=== PATIENT | male | born 1970 | race Two or more races ===

== ENCOUNTER 2020-06-14 11:25 | Outpatient (REF) | payer MEDICAID, SELFPAY | END 2020-06-14 11:26 | disposition home or self-care (01) | LOC: HO.LAB 11:25 | PROVIDERS: Visit Provider Internal Medicine | DX: Z20.822 Contact with and (suspected) exposure to COVID-19 (principal) | CPT/HCPCS: 36415; C9803; U0003; U0005 ==

== ENCOUNTER 2020-12-28 13:58 | Outpatient (REF) | payer MEDICAID, SELFPAY ==
--- NOTE | ~2020-12-28 | US_ITS ---
EXAMINATION: US RETROPERITONEAL COMPLETE (RENAL) CLINICAL INFORMATION: Renal calculi. COMPARISON: Renal ultrasound 03/03/2019 and 01/16/2018. CT abdomen and pelvis 03/30/2017. TECHNIQUE: Real-time imaging of the kidneys and bladder. FINDINGS: RIGHT KIDNEY: 11.8 x 6.3 x 5.3 cm (SAG x AP x TRV). The kidney is normal in size, contour, and echogenicity. Renal cortical thickness is normal. No calculi or focal parenchymal lesions. No hydronephrosis. LEFT KIDNEY: 11.5 x 5.9 x 5.5 cm (SAG x AP x TRV). The kidney is normal in size, contour, and echogenicity. Renal cortical thickness is normal. No calculi or focal parenchymal lesions. No hydronephrosis. BLADDER: Well distended and normal. Bilateral ureteral jets are demonstrated. Prevoid bladder volume is 152 mL. Postvoid bladder volume is 12.3 mL. Prostate volume 33.1 mL. US/US retroperitoneal comp IMPRESSION: Unremarkable renal ultrasound. Tiny postvoid bladder volume. Normal bilateral ureteral jets.
== END 2020-12-28 13:59 | disposition home or self-care (01) ==
LOC: HO.US 13:58
PROVIDERS: PCP Internal Medicine; Visit Provider Internal Medicine Geriatric Medicine
DX: M54.5 Low back pain (principal); Z87.442 Personal history of urinary calculi
CPT/HCPCS: 76770

== ENCOUNTER 2020-12-30 09:58 | Outpatient (RCR) | payer MEDICAID, SELFPAY | END 2021-01-27 15:58 | disposition home or self-care (01) | LOC: HO.PT 09:58 | PROVIDERS: PCP Internal Medicine; Visit Provider Nurse Practitioner Primary Care | DX: M54.5 Low back pain (principal) | CPT/HCPCS: 97110; 97161 ==

== ENCOUNTER 2021-05-31 10:02 | Outpatient (REF) | payer MEDICAID, SELFPAY ==
--- NOTE | ~2021-05-31 | XR_ITS ---
EXAMINATION: XR ABDOMEN KUB CLINICAL INDICATION: Calculus of kidneys. COMPARISON: None TECHNIQUE: AP view of the abdomen. FINDINGS: There is scattered stool in colon without distention. No radiopaque calculi seen. There is no organomegaly. No gross bony abnormality seen. Mild spondylosis seen at the L2-L3 disc level. XR/XR KUB IMPRESSION: Mild constipation.
== END 2021-05-31 10:03 | disposition home or self-care (01) ==
LOC: HO.XRAY 10:02
PROVIDERS: PCP Internal Medicine; Visit Provider Student in an Organized Health Care Education/Training Program
DX: N20.0 Calculus of kidney (principal)
CPT/HCPCS: 74018

== ENCOUNTER 2021-06-05 17:15 | Emergency (ER) | payer MEDICAID, SELFPAY ==
--- NOTE | ~2021-06-05 | CT_ITS ---
EXAMINATION: CT ABDOMEN AND PELVIS WITHOUT CONTRAST CLINICAL INFORMATION: Bilateral flank pain COMPARISON: None available. TECHNIQUE: Multidetector volumetric imaging was performed from the superior aspect of the liver through the pubic symphysis. Sagittal and coronal reformatted images were obtained on the technologist's workstation. This CT examination was performed using dose optimization techniques as appropriate, variously including the following: *Automated exposure control *Adjustment of mA and/or kV according to patient size (this includes techniques or standardized protocols for targeted exams where dose is matched to indication/reason for exam; i.e. extremities or head) *Use of iterative reconstruction technique DLP: 763 mGy-cm FINDINGS: LUNG BASES: Lungs are clear. Mild coronary calcifications. LIVER, GALLBLADDER, AND BILIARY TREE: The liver is normal in size, shape, and attenuation. No focal hepatic lesion or biliary ductal dilatation is present. Gallbladder unremarkable. PANCREAS: Unremarkable. SPLEEN: Unremarkable. ADRENAL GLANDS: Unremarkable. KIDNEYS AND URETERS: There is a 2 mm calculus within the distal left ureter at the ureterovesical junction associated mild upstream hydroureter and pelvocaliectasis with periureteral and perinephric fat stranding. No additional urinary calculi. Right kidney and ureter unremarkable. BLADDER: Unremarkable. GASTROINTESTINAL TRACT: The small and large bowel are unremarkable. The appendix is unremarkable. ABDOMINAL WALL: No significant hernia is appreciated. LYMPH NODES: Normal. VASCULAR: Normal caliber aorta. Mild calcific atherosclerosis of the aorta and bilateral iliac arteries. PELVIC VISCERA: Unremarkable. OSSEOUS STRUCTURES: Unremarkable. CT/CT abdomen pelvis wo con IMPRESSION: There is a 2 mm calculus within the LEFT ureterovesical junction associated with mild upstream hydroureter and pelvocaliectasis. Fleischner guidelines were followed.
[2021-06-05 17:26] VITALS: BP 152/84; PULSE 91; RESP 18; TEMP 36.8; O2SAT 98; BMI 31.5
[2021-06-05 18:14] LABS: MANUAL DIFF FLAG NO
[2021-06-05 18:15] LABS: Basophils Percent Auto 0.4 % (0-2); Eosinophils Absolute Auto 0.1 X10*3/uL (0.0-0.4); Eosinophils Percent Auto 1.1 % (0-4); Hematocrit 48.2 % (42.0-52.0); Hemoglobin 16.1 g/dl (14.0-18.0); Imm Gran Abs Auto 0.01 X10*3/uL (0.00-0.03); Imm Gran Pct Auto 0.1 % (0.0-0.4); Lymphocytes Absolute Auto 2.7 X10*3/uL (1.2-4.9); Lymphocytes Percent Auto 31.5 % (20-40); Mean Corpuscular HGB Conc 33.4 g/dl (31.0-36.0); Mean Corpuscular Hemoglobin 30.8 pg (27.0-33.0); Mean Corpuscular Volume 92.2 fL (80.0-98.0); Monocytes Absolute Auto 0.5 X10*3/uL (0.1-1.2); Monocytes Percent Auto 5.4 % (2-11); Neutrophils Absolute Auto 5.3 x10*3/uL (2.0-8.3); Neutrophils Percent Auto 61.5 % (45-73); Platelet Count 220 X10*3/uL (160-400); Red Blood Count 5.23 X10*6/uL (4.60-5.80); Red Cell Distribution Width 13.4 % (11.0-16.0); White Blood Count 8.6 X10*3/uL (4.8-10.8)
[2021-06-05 18:33] LABS: Alanine Aminotransferase 40 U/L (0-40); Albumin Level 4.6 g/dL (3.5-5.0); Alkaline Phosphatase 87 U/L (39-117); Anion Gap 14 (12-20); Aspartate Amino Transferase 41 U/L (5-37); Bilirubin Total 0.3 mg/dL (0.0-1.0); Blood Urea Nitrogen 17 mg/dL (9-16); Calcium 9.7 mg/dL (8.4-10.2); Carbon Dioxide 26 mmol/L (22-29); Chloride 108 mmol/L (96-108); Creatinine Clr Calc Pharmacy 72.9; Estimated Glomerular Filt Rate 52; Glucose Random 93 mg/dL (60-115); Sodium 144 mmol/L (135-145); Total Protein 7.5 g/dL (6.5-8.0)
--- NOTE | 2021-06-06 00:03 | PC.NURSE ---
PT ACTIVELY VERBALLY ABUSING STAFF, AND QUESTIONING PATIENTS THEY ARE BROUGHT BACK TO THE MAIN ED. THIS RN CHARGE NURSE WENT TO THE WAITING ROOM TO SPEAK W/PT RE: RESPECTING THE PRIVACY OF THE PATIENTS IN THE WAITING ROOM. AND ATTEMPTING TO EXPLAIN THAT WE HAVE TO BRING PATIENTS BACK BASED ON ACUITY AND PRIORITY. PT STATES I COULD BE FUCKING DYING, I GOT KIDNEY STONES AND THEN WALKED AWAY FROM THIS RN STATING I DON'T WANT TO HEAR YOUR FUCKING VOICE NO MORE
[2021-06-06 01:50] VITALS: BP 163/80; PULSE 95; RESP 18; O2SAT 98
[2021-06-06 02:00] VITALS: BP 101/62; PULSE 84; RESP 16; O2SAT 96
[2021-06-06] MEDS: 0.9 % Sodium Chloride 1,000 ML 999 ML IV (03:21)
[2021-06-06] MEDS: Ketorolac Tromethamine 30 MG/ML VIAL 15 MG IVPUSH (03:21)
--- NOTE | 2021-06-06 03:27 | ED.ABDPAIN ---
HPI - Abdominal Pain General Chief Complaint: Abdominal Pain Stated Complaint: abd pain Time Seen by Provider: 06/06/21 02:15 Source: patient Mode of arrival: ambulatory History of Present Illness HPI narrative: 51-year-old male with history of HIV, asthma who presents with left-sided flank pain that radiates into the anterior abdomen and down into his left groin. This has been associated with an episode of nausea and vomiting but denies any fever chills. Patient states that he uses condoms for sexual activity and is currently being followed for his HIV and is compliant with all of his medications. Related Data Previous Rx's Medication Instructions Recorded acetaminophen 500 mg tablet 1,000 mg PO Q6H PRN #30 tab 06/06/21 (Tylenol Extra Strength) prednisone 20 mg tablet 20 mg PO DAILY #4 tab 06/06/21 tamsulosin 0.4 mg capsule (Flomax) 0.4 mg PO BEDTIME #4 cap 06/06/21 Allergies Allergy/AdvReac Type Severity Reaction Status Date / Time No Known Allergies Allergy Unverified 01/01/20 14:52 [No Known Allergies*] Review of Systems Review of Systems Pertinent positives and negatives as stated in HPI 10 point review of systems is otherwise negative. PMFSH Past Medical History Source: nursing notes reviewed Social History Social History Alcohol intake: never Patient Tobacco Use Status: Current everyday Tobacco user Use of substances other than those prescribed or required for medical reasons: No Substance Use Type: Marijuana Substance Use Frequency: Daily Advance Directives: No Physical Exam ED Vital Signs: Vital Signs - 24 hr 06/05/21 17:26 06/06/21 01:50 06/06/21 02:00 Temperature 98.3 F Pulse Rate 91 95 84 Respiratory Rate 18 18 16 Blood Pressure 152/84 H 163/80 H 101/62 Pulse Oximetry 98 98 96 06/06/21 04:22 06/06/21 04:30 Temperature 98.2 F Pulse Rate 83 79 Respiratory Rate 16 16 Blood Pressure 126/82 126/82 Pulse Oximetry 98 BMI result Body Mass Index 31.5 VITAL SIGNS: Reviewed. GENERAL: Well developed, well nourished, in no acute distress. HEAD: Normocephalic/atraumatic EYES: PERRLA, EOMI EARS: Ext canals without abnormality OROPHARYNX: no oral lesions noted, posterior pharynx clear LUNGS: Normal breath sounds. No adventitious sounds or accessory muscle use. SpO2<98> CARDIOVASCULAR: Regular rate and rhythm without noted murmurs ABDOMEN: Soft, left flank pain,, non-distended with bowel sounds. SKIN: Inspection of the skin reveals no rashes NEUROLOGIC: Alert and oriented x 4. Strength and sensation to light touch were grossly intact x 4. Course Course Course Narrative: 51-year-old male with history and clinical presentation consistent with renal colic and less likely felt to be hernia or diverticulitis. On review of all investigations patient has small 2 mm ureterolithiasis and will be provided with IV hydration, Flomax, pain medication. On review of all investigations and on re-evaluation patient has 2 mm stone with mild hydro and after receiving fluids/Flomax/pain medication he reports minimal improvement but is requesting something to eat and drink. MDM - Abdominal Pain Lab Data Result diagrams: 06/05/21 18:08 06/05/21 18:08 Labs: Lab Results 06/05/21 06/05/21 06/06/21 Range/Units 18:08 18:08 04:51 WBC 8.6 (4.8-10.8) X10*3/uL RBC 5.23 (4.60-5.80) X10*6/uL Hgb 16.1 (14.0-18.0) g/dl Hct 48.2 (42.0-52.0) % MCV 92.2 (80.0-98.0) fL MCH 30.8 (27.0-33.0) pg MCHC 33.4 (31.0-36.0) g/dl RDW 13.4 (11.0-16.0) % Plt Count 220 (160-400) X10*3/uL MPV 10.0 (9.4-12.4) fL Immature Gran % (Auto) 0.1 (0.0-0.4) % Neut % (Auto) 61.5 (45-73) % Lymph % (Auto) 31.5 (20-40) % [place] % (Auto) 5.4 (2-11) % Eos % (Auto) 1.1 (0-4) % Baso % (Auto) 0.4 (0-2) % Lymph # (Auto) 2.7 (1.2-4.9) X10*3/uL [place] # (Auto) 0.5 (0.1-1.2) X10*3/uL Eos # (Auto) 0.1 (0.0-0.4) X10*3/uL Baso # (Auto) 0.0 (0.0-0.2) X10*3/uL Abs Immat Gran (auto) 0.01 (0.00-0.03) X10*3/uL Absolute Neuts (auto) 5.3 (2.0-8.3) x10*3/uL Absolute Nucleated RBC 0.000 (0.0-0.012) X10*3/uL Nucleated RBC % (auto) 0.0 (0.0-0.2) /100WBC Sodium 144 (135-145) mmol/L Potassium 4.0 (3.3-5.1) mmol/L Chloride 108 (96-108) mmol/L Carbon Dioxide 26 (22-29) mmol/L Anion Gap 14 (12-20) BUN 17 H (9-16) mg/dL Creatinine 1.45 H (0.5-1.4) mg/dL Estim Creat Clear Calc 72.9 Estimated GFR 52 Random Glucose 93 (60-115) mg/dL Calcium 9.7 (8.4-10.2) mg/dL Total Bilirubin 0.3 (0.0-1.0) mg/dL AST 41 H (5-37) U/L ALT 40 (0-40) U/L Alkaline Phosphatase 87 (39-117) U/L Total Protein 7.5 (6.5-8.0) g/dL Albumin 4.6 (3.5-5.0) g/dL Urine Color YELLOW Urine Appearance TURBID Urine pH 6.0 (5.0-8.0) Ur Specific [place] >= 1.030 H (1.005-1.025) Urine Protein 1+ H (NEG-TRACE) MG/DL Urine Glucose (UA) NEG (NEG) MG/DL Urine Ketones 15 (NEG) MG/DL Urine Blood 2+ H (NEG) Urine Nitrite NEG (NEG) Ur Leukocyte Esterase NEG (NEG) Urine RBC 1-4 (0) /HPF Urine WBC 0-2 (0-4) /HPF Ur Squamous Epith Cells NONE /LPF Amorphous Sediment 4+ /LPF Urine Bacteria TRACE /LPF Urine Mucus 1+ /LPF Discharge Plan Discharge Clinical Impression: Renal colic, Ureterolithiasis Patient Disposition: Home, Self-Care Instructions: Renal Colic (ED), Ureteral Stones (ED) Additional Instructions: 1. Increase fluid hydration, especially with water. Please avoid carbonated and caffeinated beverages as much as possible. 2. You have been provided with a referral to follow-up with urology and you should call the office this morning. 3. Follow-up with your primary care provider to further discuss and get re-evaluated. Return to the ER for worsening symptoms. Prescriptions: New tamsulosin [Flomax] 0.4 mg capsule 0.4 mg PO BEDTIME Qty: 4 0RF acetaminophen [Tylenol Extra Strength] 500 mg tablet 1,000 mg PO Q6H PRN (Reason: pain) Qty: 30 0RF prednisone 20 mg tablet 20 mg PO DAILY Qty: 4 0RF Referrals: Sree Jerez MD [Physician] - 1 day (Left 2mm stone with mild hydro)
[2021-06-06 04:22] VITALS: BP 126/82; PULSE 83; RESP 16; TEMP 36.8; O2SAT 98
[2021-06-06 04:30] VITALS: BP 126/82; PULSE 79; RESP 16
[2021-06-06] MEDS: Tamsulosin HCL 0.4 MG CAPSULE PO (04:36)
[2021-06-06 04:56] LABS: Appearance Urine TURBID; Color Urine YELLOW; Glucose Urine UA NEG (NEG); Leukocyte Esterase Urine NEG (NEG); Nitrite Urine NEG (NEG); Specific Gravity - Urine >= 1.030 (1.005-1.025); UACC Culture Trigger NO; Urine Blood 2+ (NEG); Urine Ketones 15 MG/DL (NEG); Urine Protein 1+ MG/DL (NEG-TRACE)
[2021-06-06 05:03] LABS: Amorphous Sediment Urine 4+ /LPF; Bacteria Urine TRACE /LPF; Mucus Urine 1+ /LPF; WBC Urine 0-2 /HPF (0-4)
== END 2021-06-06 06:51 | disposition home or self-care (01) ==
PROVIDERS: Emergency Provider Student in an Organized Health Care Education/Training Program
DX: N20.1 Calculus of ureter (principal); N23 Unspecified renal colic; Z79.899 Other long term (current) drug therapy
CPT/HCPCS: 36415; 74176; 80053; 81001; 85025; 96361; 96374; 99284; J1885

== ENCOUNTER → 2021-10-20 13:28 | Outpatient (BNVA) | payer MEDICAID, SELFPAY | PROVIDERS: PCP Internal Medicine | DX: N20.0 Calculus of kidney (principal); R39.11 Hesitancy of micturition; R35.1 Nocturia | CPT/HCPCS: 51798; 99202 ==

== ENCOUNTER 2022-01-09 09:55 | Outpatient (REF) | payer MEDICAID, SELFPAY ==
--- NOTE | ~2022-01-09 | US_ITS ---
EXAMINATION: US RETROPERITONEAL LIMITED (RENAL ONLY) CLINICAL INFORMATION: Calculus of kidney. COMPARISON: CT abdomen and pelvis without contrast 06/06/2021. TECHNIQUE: Real-time imaging of the kidneys. FINDINGS: RIGHT KIDNEY: 12.0 x 5.5 x 5.0 cm (SAG x AP x TRV). The kidney is normal in size, contour, and echogenicity. Renal cortical thickness is normal. No calculi or focal parenchymal lesions. No hydronephrosis. LEFT KIDNEY: 12.0 x 6.3 x 4.5 cm (SAG x AP x TRV). The kidney is normal in size, contour, and echogenicity. Renal cortical thickness is normal. No calculi or focal parenchymal lesions. No hydronephrosis. US/US renal BI IMPRESSION: No hydronephrosis or nephrolithiasis appreciated..
== END 2022-01-09 09:56 | disposition home or self-care (01) ==
LOC: HO.US 09:55
DX: N20.0 Calculus of kidney (principal)
CPT/HCPCS: 76775

== ENCOUNTER 2022-02-10 09:54 | Outpatient (REF) | payer MEDICAID, SELFPAY ==
[2022-02-10 11:20] LABS: PSA,Total (Free>4and<10) 0.37 ng/mL (0.00-4.00)
== END 2022-02-10 09:55 | disposition home or self-care (01) ==
LOC: HO.LAB 09:54
PROVIDERS: PCP Internal Medicine; Visit Provider Urology
DX: Z12.5 Encounter for screening for malignant neoplasm of prostate (principal); R39.11 Hesitancy of micturition
CPT/HCPCS: 36415; 84153

== ENCOUNTER → 2022-07-25 10:00 | Outpatient (BNVA) | payer MEDICAID, SELFPAY | PROVIDERS: PCP Internal Medicine; Visit Provider Urology | DX: R39.15 Urgency of urination (principal) | CPT/HCPCS: 51798; 99212 ==

== ENCOUNTER 2022-10-18 11:08 | Outpatient (REF) | payer MEDICAID, SELFPAY | END 2022-10-18 11:09 | disposition home or self-care (01) | LOC: HO.US 11:08 | PROVIDERS: PCP Internal Medicine; Visit Provider Urology | DX: Z13.89 Encounter for screening for other disorder (principal) ==

== ENCOUNTER 2022-10-23 11:57 | Outpatient (REF) | payer MEDICAID, SELFPAY ==
--- NOTE | ~2022-10-23 | US_ITS ---
EXAMINATION: US PELVIS LIMITED (BLADDER) CLINICAL INFORMATION: Benign prostatic hyperplasia without lower urinary tract symptoms. COMPARISON: Ultrasound retroperitoneal limited (renal only) 01/09/2022. TECHNIQUE: Real-time imaging of the bladder. FINDINGS: BLADDER: Well distended and normal. Bilateral ureteral jets are demonstrated. Prevoid bladder volume is 391.21 mL. Postvoid bladder volume is 42.73 mL. The prostate volume is 37.9 mL. US/US bladder IMPRESSION: Prostate is enlarged with a volume of 37.9 mL. Postvoid bladder residual of 42.7 mL.
== END 2022-10-23 11:58 | disposition home or self-care (01) ==
LOC: HO.US 11:57
PROVIDERS: PCP Internal Medicine; Visit Provider Urology
DX: Z12.5 Encounter for screening for malignant neoplasm of prostate (principal); N40.0 Benign prostatic hyperplasia without lower urinary tract symptoms
CPT/HCPCS: 76857

== ENCOUNTER 2022-11-10 13:06 | Outpatient (AMB) | payer MEDICAID, SELFPAY ==
--- NOTE | 2022-11-10 13:15 | A.OFFVIS_ITS ---
Intake Intake Visit Reasons: Cysto/US bladder(set) Intake Note: Patient presents today for a CYSTOSCOPY Procedure: Meds: Doxazosin & Telterodine Allergies to Antibiotic: Sulfa Blood Thinner: None Urinalysis test clear for Cysto Disposable Uro-G Cystoscope Cannula: Lot: [id number] Exp: 08/18/2024 Allergies No Known Allergies [No Known Allergies*] Allergy (Verified 11/10/22 14:04) Medication List - Last Reconciled 11/10/22 by Sree Jerez MD bethanechol chloride 50 mg PO BID 30 days qcgwbgnnv-tsahnozi-ezywluw ala 50-200-25 mg (Biktarvy) 1 tab PO BEDTIME ipratropium-albuterol 20-100 mcg/actuation (Combivent Respimat) 1 puff inhalation QID PRN levothyroxine 175 mcg PO DAILY multivitamin 1 tab PO DAILY pravastatin 10 mg PO DAILY prednisone 20 mg PO DAILY HPI HPI Comments History of Present Illness Details Memo is a pleasant male. He is a patient Dr. Freed. He is seen for the following urologic conditions - urinary urgency with small voiding Persistent urgency with occasional weakness of stream Bladder ultrasound normal Cystoscopy normal Small prostate Trial bethanechol Lower urinary tract symptoms Persistent weakness of stream with frequency Current medications include doxazosin Concurrent conditions include HIV Has tried anticholinergics including tolterodine Cystoscopy small prostate PFSH Medical History H/O radioactive iodine thyroid ablation Hesitancy of micturition History of Graves' disease History of rhabdomyolysis History of syncope Renal calculi Social History Alcohol intake: never Patient Tobacco Use Status: Current everyday Tobacco user Substance Use Type: Marijuana Review of Systems Const Denies chills and Denies fever(s) Card Reports no additional complaints and Denies syncope Resp Denies cough GI Denies abdominal pain and Denies heartburn Reports as per HPI and Denies change in libido Neuro Denies syncope Psych Denies change in libido Endo Denies change in libido Physical Exam Const General: cooperative, healthy appearing, comfortable and no acute distress Orientation/consciousness: patient oriented x3 HEENT Face and sinus: Yes normal facial exam Mouth: moist mucous membranes Neck Neck: Yes normal visual inspection, Yes full ROM and Yes trachea midline Chest Chest palpation & inspection: normal inspection of the chest Resp Effort & Inspection: normal respiratory effort, able to speak in complete sentences and no respiratory distress GI Inspection: Yes normal to inspection Back/Spine/Pelvis Cervical Spine: normal cervical lordosis Thoracic/Lumbar Spine: thoracic and lumbar spine normal to inspection Skin General skin exam: no rashes or lesions noted Neuro General: patient oriented x3, gait normal, tone normal and moves all extremities Extrem General: Yes normal to inspection and Yes capillary refill normal Office Procedures Cystoscopy Consent Discussed risk and benefit or proposed procedure with the patient. Information consent for procedure given to the patient. Discussed technical aspects, risks, benefits and alternatives in full. Addressed all of the patient's questions and concerns regarding the procedure. The patient demonstrated knowledge and understanding. They wish to proceed with this procedure. Preparation The patient was prepped in the usual manner. A manager of administration was present and in the room. Genitalia was prepped with betadine solution in a sterile manner. Lidocaine Jelly 2% was placed into the urethra and 16Fr flexible Olympus cystoscope was inserted into the meatus after adequate lubrication. Procedure Meatus circumcised Urethra anterior posterior urethra normal Prostatic Urethra unremarkable Bladder examination with retroflexion of cystoscope Bladder Orifices normal shape and position Bladder Capacity medium Trabeculations grade 1 Cellule Formation - Diverticulum Formation - Mucosal Erythema - Bladder Tumor - [id number] Procedure code (CPT) selection complete Office Meds lidocaine HCl Performing Provider: Sree Jerez MD Administered by: Gricelda Mendoza RN on 11/10/22 14:20 Dose Route Admin Location Lot Number Expiration Date [employer] 10 mL intra-urethral nitrofurantoin monohyd/m-cryst 100 mg Performing Provider: Sree Jerez MD Administered by: Gricelda Mendoza RN on 11/10/22 14:20 Dose Route Admin Location Lot Number Expiration Date [employer] 100 mg PO Results AMB Urinalysis, Automated UA Leukoctes 0 [place]/uL Last Edit by Nancy Noland MA on 11/10/22 14:07 UA Nitrite Negative Last Edit by Nancy Noland MA on 11/10/22 14:07 UA Urobilinogen 0.2 mg/dL Last Edit by Nancy Noland MA on 11/10/22 14:07 UA Protein 15 mg/dL Last Edit by Nancy Noland MA on 11/10/22 14:07 UA pH 5.5 Last Edit by Nancy Noland MA on 11/10/22 14:07 UA Blood 25 [place]/uL Last Edit by Nancy Noland MA on 11/10/22 14:07 UA Specific [place] 1.030 Last Edit by Nancy Noland MA on 11/10/22 14:07 UA Ketone Positive Last Edit by Nancy Noland MA on 11/10/22 14:07 UA Bilirubin 0 mg/dL Last Edit by Nancy Noland MA on 11/10/22 14:07 UA Glucose 0 mg/dL Last Edit by Nancy Noland MA on 11/10/22 14:07 Results Reviewed Results Reviewed: Laboratory Last Values Urine pH (Auto) 5.5 11/10/22 14:05 Specific [place] (Auto) 1.030 11/10/22 14:05 Urine Protein (Auto) 15 mg/dL 11/10/22 14:05 Glucose (UA)(Auto) 0 mg/dL 11/10/22 14:05 Urine Ketones (Auto) Positive 11/10/22 14:05 Urine Blood (Auto) 25 [place]/uL 11/10/22 14:05 Urine Nitrite (Auto) Negative 11/10/22 14:05 Urine Bilirubin (Auto) 0 mg/dL 11/10/22 14:05 Urine Urobilinogen (Auto) 0.2 mg/dL 11/10/22 14:05 Leukocyte Esterase (Auto) 0 [place]/uL 11/10/22 14:05 Assessment & Plan Assessment & Plan (1) Urinary urgency: Code(s): R39.15 - Urgency of urination (2) Hesitancy of micturition: Code(s): R39.11 - Hesitancy of micturition Plan Three month follow-up Orders: Orders AMB Cystoscopy Today N40.0 - Benign prostatic hyperplasia without lower urinary tract symptoms AMB Urinalysis Automated Today Z13.9 - Encounter for screening, unspecified Medications: New bethanechol chloride 50 mg PO BID 60 tabs 1RF 30 days N39.0 - Urinary tract infection, site not specified, R39.11 - Hesitancy of micturition Discontinued doxazosin Discontinued Reason: Patient Completed Course 4 mg PO BEDTIME 30 tabs 1RF 30 days N13.8 - Other obstructive and reflux uropathy, N40.0 - Benign prostatic hyperplasia without lower urinary tract symptoms, N40.1 - Benign prostatic hyperplasia with lower urinary tract symptoms, R39.11 - Hesitancy of micturition tolterodine ER Discontinued Reason: Patient Completed Course 2 mg PO DAILY 30 caps 1RF 30 days Patient Instructions: Imaging studies, laboratory and physical exam results were discussed and reviewed in detail. No major barriers to patient understanding were identified. An opportunity to ask questions regarding the treatment plan was provided. All questions were answered. The patient expressed understanding and agreement with the above treatment plan. The patient is aware they should contact our office by phone for worsening of their current condition or the appearance of new urologic symptoms. Compliance i s encouraged with any medications and followup testing that is ordered. It is a privilege to participate in the urologic care of your patient. If you have any questions or concerns regarding treatment for the above conditions, or other urologic issues, please do not hesitate to contact me. The office telephone contact is [phone]. This note is constructed using voice recognition software. While every effort has been made to ensure accuracy premium representative errors may have been included. Yours sincerely, Dr Sree Jerez MD, [facility] - Urology Providers of Expert, Compassionate Care for the Genitourinary System Coding Level of Care Code Est Pt Level 4 (29284) Diagnoses Urinary urgency R39.15 Hesitancy of micturition R39.11 CPT Codes Cystoscopy - CPT: 99367-[id number] ([id number])
== END 2022-11-10 14:40 | disposition home or self-care (01) ==
PROVIDERS: Visit Provider Urology
DX: R39.15 Urgency of urination (principal); R39.11 Hesitancy of micturition; N40.0 Benign prostatic hyperplasia without lower urinary tract symptoms
CPT/HCPCS: 52000

== ENCOUNTER → 2022-11-10 13:06 | Outpatient (BNVA) | payer MEDICAID, SELFPAY | PROVIDERS: Visit Provider Urology | DX: R39.15 Urgency of urination (principal); R39.11 Hesitancy of micturition | CPT/HCPCS: 52000 ==

== ENCOUNTER 2022-12-01 12:55 | Outpatient (AMB) | payer MEDICAID, SELFPAY ==
--- NOTE | 2022-12-01 07:36 | MHC.OFFVIS ---
Intake Intake Visit Reasons: LDCT SD Allergies No Known Allergies [No Known Allergies*] Allergy (Verified 11/10/22 14:04) HPI LDCT SD HPI Details Initial visit for this 52yo smoker with a 21PYH. Patient has been smoking since age 31 for 21 years at 1ppd. . Denies marijuana use. Denies second hand smoke exposure. Denies exposure to chemicals or substances like asbestos. . Denies known family history of lung cancer. Denies personal history of cancers. History of HIV (dx 2002). History of Graves s/p COELLO and thyroidectomy. .. Denies chest CT in last year. CT of abdomen done 03/30/17 noted a 3mm nodule in left lung base . Denies recent travel outside the [place]. Denies recent respiratory illness or recent hospitalization for respiratory issues. Denies testing positive for COVID. Admits receiving COVID Vaccine. x 3. . Denies fever, chills, new/worsening cough, hemoptysis, hoarseness or dysphagia. Denies significant chest pain, significant dyspnea or unintentional weight loss. Patient Lung Cancer Screening Questionnaire reviewed with patient by provider. . Shared Decision Making Completed. Patient meets criteria. Discussed in detail with patient, the risk vs benefit of LDCT screening. Patient consents to proceed with scan. Discussed smoking cessation. [facility] Medical History (Updated 12/01/22 @ 13:08 by Flor Ramos PA-C) Hesitancy of micturition History of Graves' disease (~2005) History of radioactive iodine thyroid ablation (~2006) History of rhabdomyolysis History of syncope HIV (human immunodeficiency virus infection) (~2002) Hyperlipemia Hypothyroidism, postsurgical (~2007) Nicotine dependence, cigarettes, uncomplicated Renal calculi Surgical History (Updated 11/27/22 @ 13:07 by Flor Ramos PA-C) History of colonoscopy History of cystoscopy History of total thyroidectomy (~2007) Social History (Updated 12/01/22 @ 13:04 by Flor Ramos PA-C) Alcohol intake: never Patient Tobacco Use Status: Current everyday Tobacco user Years Smoked: (onset 31yo, 1ppd x 21yrs - 21pyh) Substance Use Type: Marijuana Assessment & Plan Assessment & Plan (1) Nicotine dependence, cigarettes, uncomplicated: Comment: (current smoker, onset 31yo, 1ppd x 21yrs, 21pyh) Code(s): F17.210 - Nicotine dependence, cigarettes, uncomplicated Plan: - SDM visit completed today in office. - Patient meets criteria for LDCT for lung cancer screening purposes and is asymptomatic. - Smoking cessation counseling offered. Patients can always call [phone]. - Will arrange for a LDCT scan of the chest for screening purposes at [facility]. - Risks, benefits, and alternatives were discussed in detail and the patient agrees to proceed. - Risks discussed include but are not limited to: radiation exposure, anxiety during testing and while awaiting results, false negatives, false positives and possibility of additional intervention such as further imaging or surgical procedures for benign disease. - Benefits are obviously detection of lung cancer at an early stage which can lead to improved outcomes. - Discussed the importance of screening program compliance with adherence to yearly LDCT scan as scheduled - or sooner interval scans for personalized screening regimen. - Discussed follow up plan. Our office will send a letter discussing results and if needed set up phone call and office visit based on CT findings. - Patient educated on results categorization and the management decisions for suspicious findings potentially found on the screening LDCT scan. Any patient with a Lung RADS score of 3 or 4 will be reviewed by a multidisciplinary team at [facility] to form a plan of action in regards to scan findings. - If further work up is warranted for a suspicious lung finding this will be followed by the Lung Cancer Screening program in conjunction with the Thoracic Surgery Department at [facility]. - A copy of the office note and LDCT will be sent to the patient's PCP - as well as documentation on any associated further plans of care. - Incidental findings on LDCT are the PCP's responsibility. These findings are indicated with an S finding on the LDCT Assessment. A note discussing the findings will be sent to the PCP who is then responsible for further management. - All questions answered.? Coding Level of Care Code Lung Cancer Screening G0296 Diagnoses Nicotine dependence, cigarettes, uncomplicated F17.210
== END 2022-12-01 13:47 | disposition home or self-care (01) ==
PROVIDERS: PCP Internal Medicine; Visit Provider Physician Assistant Medical
DX: F17.210 Nicotine dependence, cigarettes, uncomplicated (principal)
CPT/HCPCS: G0296

== ENCOUNTER 2022-12-01 13:20 | Outpatient (REF) | payer MEDICAID, SELFPAY ==
--- NOTE | ~2022-12-01 | CT_ITS ---
EXAMINATION: CT CHEST SCREENING CLINICAL INFORMATION: Current smoker. 20 pack year history. COMPARISON: Previous chest x-ray from 2013 TECHNIQUE: Multidetector volumetric CT imaging of the chest is performed without contrast using low dose technique. Additional 2D coronal and sagittal reformatted images and axial 3D maximum intensity projection (MIP) images are generated on the CT workstation. This CT examination was performed using dose optimization techniques as appropriate, variously including the following: *Automated exposure control *Adjustment of mA and/or kV according to patient size (this includes techniques or standardized protocols for targeted exams where dose is matched to indication/reason for exam; i.e. extremities or head) *Use of iterative reconstruction technique DLP: 75 mGy-cm FINDINGS: LUNGS: Mild emphysema. 3 mm right upper lobe nodule axial image 75 series 5. Rim millimeters left upper lobe nodule axial image 105 series 5. 2 mm right upper lobe nodule axial image 135 series 5. 3 mm peripheral or subpleural right lower lobe nodule adjacent to the major fissure axial image 168 series 5. 2 and 3 mm peripheral right upper lobe nodules axial image 199 series 5. 2 and 4 mm peripheral or subpleural right middle lobe nodules adjacent to the minor fissure axial image 244 and 3 mm more lateral similar nodule axial image 241 series 5. 4 mm peripheral right lower lobe nodule axial image 273 series 5. 3 mm peripheral or subpleural lingular nodule and right lower lobe nodule axial image 299 series 5. 4 mm peripheral left lower lobe nodule axial image 38 series 5. 3 mm peripheral or subpleural right middle lobe nodule axial image 312 series 5. 2 mm peripheral left lower lobe nodule axial image 346 series 5. MEDIASTINUM: The thyroid gland appears to have been removed. Small mediastinal lymph nodes. No enlarged lymph nodes. Normal heart size. Trace pericardial effusion. Normal caliber thoracic aorta. Mild coronary artery calcification. CORONARY ARTERY CALCIFICATION: Mild PLEURA: There is no pleural effusion. No pleural mass or thickening. AXILLA: No lymphadenopathy. UPPER ABDOMEN: Unremarkable OSSEOUS STRUCTURES: Unremarkable. CT/CT lung screening IMPRESSION: Mild emphysema. Small bilateral pulmonary nodules, largest measuring 4 mm. ASSESSMENT: Lung-RADS category 2: Benign RECOMMENDATION: Annual low-dose chest CT follow-up recommended
== END 2022-12-01 13:21 | disposition home or self-care (01) ==
LOC: HO.CT 13:20
PROVIDERS: PCP Internal Medicine; Visit Provider Physician Assistant Medical
DX: Z12.2 Encounter for screening for malignant neoplasm of respiratory organs (principal); F17.210 Nicotine dependence, cigarettes, uncomplicated
CPT/HCPCS: 71271; G0296

== ENCOUNTER 2022-12-05 13:52 | Outpatient (REF) | payer MEDICAID, SELFPAY ==
[2022-12-05 16:06] LABS: MANUAL DIFF FLAG NO
[2022-12-05 16:18] LABS: Basophils Absolute Auto 0.1 X10*3/uL (0.0-0.2); Basophils Percent Auto 0.5 % (0-2); Eosinophils Absolute Auto 0.2 X10*3/uL (0.0-0.4); Eosinophils Percent Auto 2.1 % (0-4); Hematocrit 50.9 % (42.0-52.0); Imm Gran Abs Auto 0.03 X10*3/uL (0.00-0.03); Imm Gran Pct Auto 0.3 % (0.0-0.4); Lymphocytes Absolute Auto 3.3 X10*3/uL (1.2-4.9); Lymphocytes Percent Auto 36.6 % (20-40); Mean Corpuscular HGB Conc 33.4 g/dl (31.0-36.0); Mean Corpuscular Hemoglobin 30.7 pg (27.0-33.0); Monocytes Absolute Auto 0.6 X10*3/uL (0.1-1.2); Monocytes Percent Auto 6.3 % (2-11); Neutrophils Absolute Auto 4.9 x10*3/uL (2.0-8.3); Neutrophils Percent Auto 54.2 % (45-73); Platelet Count 206 X10*3/uL (160-400); Red Blood Count 5.53 X10*6/uL (4.60-5.80); Red Cell Distribution Width 13.2 % (11.0-16.0); White Blood Count 9.1 X10*3/uL (4.8-10.8)
[2022-12-05 16:55] LABS: Alanine Aminotransferase 41 U/L (0-40); Albumin Level 4.5 g/dL (3.5-5.0); Alkaline Phosphatase 84 U/L (39-117); Anion Gap 13 (12-20); Aspartate Amino Transferase 27 U/L (5-37); Bilirubin Total 0.3 mg/dL (0.0-1.0); Blood Urea Nitrogen 17 mg/dL (9-16); Calcium 9.8 mg/dL (8.4-10.2); Carbon Dioxide 25 mmol/L (22-29); Chloride 110 mmol/L (96-108); Estimated Glomerular Filt Rate > 60; Glucose Random 81 mg/dL (60-115); Sodium 144 mmol/L (135-145); Total Protein 7.6 g/dL (6.5-8.0)
[2022-12-05 17:19] LABS: TSH reflex Free T4 0.52 uIU/mL (0.32-4.0)
[2022-12-06 11:39] LABS: Absolute CD3 Count 2498 cells/uL (840-3060); Absolute CD4 Count 1341 cells/uL (490-1740); Absolute CD8 Count 1179 cells/uL (180-1170); Absolute Lymphocytes 3411 cells/uL (850-3900); CD4 CD8 Ratio 1.14 (0.86-5.00); Percent CD3 Cells 73 % (57-85); Percent CD4 Cells 39 % (30-61); Percent CD8 Cells 35 % (12-42)
[2022-12-07 15:08] LABS: HIV RNA PCR Qn Copies NOT DETECTED copies/mL (NOT DETECTED); HIV RNA PCR Qn Log Copies NOT DETECTED (NOT DETECTED)
[2022-12-07 20:34] LABS: TS Negative Control Passed; TS Panel A 0; TS Panel B 2; TS Positive Control Passed; TSpotTB Negative (Negative)
== END 2022-12-05 13:53 | disposition home or self-care (01) ==
LOC: HO.HHCL 13:52
PROVIDERS: Referring Provider Family Medicine; Visit Provider Registered Nurse
DX: Z11.1 Encounter for screening for respiratory tuberculosis (principal); E89.0 Postprocedural hypothyroidism; B20 Human immunodeficiency virus [HIV] disease
CPT/HCPCS: 36415; 80053; 84443; 85025; 86359; 86360; 86481; 87536

== ENCOUNTER 2023-05-24 09:27 | Outpatient (REF) | payer MEDICAID, SELFPAY ==
[2023-05-24 11:24] LABS: MANUAL DIFF FLAG NO
[2023-05-24 11:58] LABS: Basophils Absolute Auto 0.1 X10*3/uL (0.0-0.2); Basophils Percent Auto 0.6 % (0-2); Eosinophils Absolute Auto 0.2 X10*3/uL (0.0-0.4); Hematocrit 49.7 % (42.0-52.0); Imm Gran Abs Auto 0.02 X10*3/uL (0.00-0.03); Imm Gran Pct Auto 0.2 % (0.0-0.4); Lymphocytes Absolute Auto 2.9 X10*3/uL (1.2-4.9); Lymphocytes Percent Auto 34.4 % (20-40); Mean Corpuscular HGB Conc 34.2 g/dl (31.0-36.0); Mean Corpuscular Hemoglobin 31.3 pg (27.0-33.0); Mean Corpuscular Volume 91.5 fL (80.0-98.0); Mean Platelet Volume 10.8 fL (9.4-12.4); Monocytes Absolute Auto 0.4 X10*3/uL (0.1-1.2); Monocytes Percent Auto 4.8 % (2-11); Neutrophils Absolute Auto 4.9 x10*3/uL (2.0-8.3); Platelet Count 232 X10*3/uL (160-400); Red Blood Count 5.43 X10*6/uL (4.60-5.80); Red Cell Distribution Width 13.7 % (11.0-16.0); White Blood Count 8.5 X10*3/uL (4.8-10.8)
[2023-05-24 12:14] LABS: Alanine Aminotransferase 33 U/L (0-40); Albumin Level 4.3 g/dL (3.5-5.0); Alkaline Phosphatase 90 U/L (39-117); Anion Gap 14 (12-20); Aspartate Amino Transferase 24 U/L (5-37); Bilirubin Total 0.4 mg/dL (0.0-1.0); Blood Urea Nitrogen 16 mg/dL (9-16); Calcium 9.4 mg/dL (8.4-10.2); Carbon Dioxide 25 mmol/L (22-29); Chloride 107 mmol/L (96-108); Cholesterol 188 mg/dL (<200); Estimated Glomerular Filt Rate > 60; Glucose Random 99 mg/dL (60-115); HDL Cholesterol 40 mg/dL (>40); LDL Cholesterol Calculated 113 mg/dL (<100); Potassium 4.1 mmol/L (3.3-5.1); Sodium 142 mmol/L (135-145); Total Protein 7.4 g/dL (6.5-8.0); Triglycerides 176 mg/dL (<150)
[2023-05-24 12:22] LABS: Syphilis Screen Nonreactive (Nonreactive)
[2023-05-24 12:25] LABS: ~HepC Num1 0.11 S/CO (0.00-0.79); ~Hepatitis C Antibody Nonreactive (Nonreactive)
[2023-05-24 13:36] LABS: Reflex LDLD? No
[2023-05-25 14:23] LABS: Absolute CD3 Count 2168 cells/uL (840-3060); Absolute CD4 Count 1072 cells/uL (490-1740); Absolute CD8 Count 1087 cells/uL (180-1170); Absolute Lymphocytes 3180 cells/uL (850-3900); CD4 CD8 Ratio 0.99 (0.86-5.00); Percent CD3 Cells 68 % (57-85); Percent CD4 Cells 34 % (30-61); Percent CD8 Cells 34 % (12-42)
[2023-05-25 18:53] LABS: HIV RNA PCR Qn Copies 262 copies/mL (NOT DETECTED); HIV RNA PCR Qn Log Copies 2.42 (NOT DETECTED)
== END 2023-05-24 09:28 | disposition home or self-care (01) ==
LOC: HO.HHCL 09:27
PROVIDERS: Visit Provider Student in an Organized Health Care Education/Training Program
DX: B20 Human immunodeficiency virus [HIV] disease (principal)
CPT/HCPCS: 36415; 80053; 80061; 85025; 86359; 86360; 86735; 86762; 86765; 86780; 86803; 87536

== ENCOUNTER 2023-07-11 10:58 | Outpatient (REF) | payer MEDICAID, SELFPAY ==
[2023-07-11 15:49] LABS: CT PCR NOT DETECTED (Not Detect.); NG PCR NOT DETECTED (Not Detect.)
[2023-07-13 15:18] LABS: HIV RNA PCR Qn Copies 32 copies/mL (NOT DETECTED); HIV RNA PCR Qn Log Copies 1.51 (NOT DETECTED)
== END 2023-07-11 10:59 | disposition home or self-care (01) ==
LOC: HO.HHCL 10:58
PROVIDERS: Visit Provider Student in an Organized Health Care Education/Training Program
DX: B20 Human immunodeficiency virus [HIV] disease (principal)
CPT/HCPCS: 0353U; 36415; 87536

== ENCOUNTER 2023-07-30 18:16 | Emergency (ER) | payer MEDICAID, SELFPAY ==
--- NOTE | ~2023-07-30 | XR_ITS ---
EXAMINATION: XR HIP, RIGHT CLINICAL INFORMATION: Fall and pain COMPARISON: None available. TECHNIQUE: Frontal view the pelvis with coned frontal and frog-leg lateral views of the right hip. of the right hip. FINDINGS: Femoral head is well-seated within the acetabula. Degenerative changes are seen with prominent marginal osteophytosis. I do not appreciate any cortical disruption or trabecular irregularity to suggest underlying fracture or dislocation. Elongated femoral head/neck junction could be seen in the setting of cam-type femoral acetabular impingement syndrome. Similar morphology is seen in the contralateral left hip. Unremarkable bowel gas pattern. XR/XR hip RT w PEL1V IMPRESSION: Degenerative changes but no acute fracture or dislocation. Elongated femoral head/neck junction could be seen in the setting of cam type femoral acetabular impingement syndrome.
--- NOTE | ~2023-07-30 | XR_ITS ---
EXAMINATION: XR RIBS, RIGHT CLINICAL INFORMATION: Fall. Pain. COMPARISON: Chest radiograph dated 03/03/2013. TECHNIQUE: 6 views of the right ribs were obtained. FINDINGS: Lungs are clear. No consolidation, pneumothorax, or pleural effusion. The cardiomediastinal silhouette and pulmonary vasculature are normal. Osseous structures are unremarkable. Ribs are intact. No fractures are identified. XR/XR ribs RT min 3V w CXR1V IMPRESSION: Ribs are intact. No fractures are identified. No acute cardiopulmonary disease.
[2023-07-30 18:27] VITALS: BP 143/97; BP 152/96; PULSE 113; PULSE 120; RESP 19; TEMP 36.8; O2SAT 94; O2SAT 98; BMI 30.4
--- NOTE | 2023-07-30 19:09 | ED.FALL ---
HPI - Fall General Chief Complaint: Fall Stated Complaint: FALL, HIP PAIN Time Seen by Provider: 07/30/23 18:40 Source: patient Mode of arrival: ambulatory Limitations: no limitations History of Present Illness HPI Narrative: Patient is a 53-year-old male who presents emergency department for evaluation of right hip pain after mechanical trip and fall. He reports at approximately 11:00 this morning he was walking, and his foot got caught on a elevation of the sidewalk resulting in a trip and fall landing on his right hip. He denies any head strike or loss of consciousness. He denies use of blood thinners or known coagulation disorders. He is not experiencing any headache. He does admit to walking home after, limping, putting minimal weight on the leg. Currently he reports pain to the right hip and proximal thigh. He denies pain to his upper extremities or headache. He denies abdominal pain, however he does admit that if he tries to take a deep breath in he notices pain to the right side of the chest. He reports he did not take any pain medication at home today before coming in via EMS. Related Data Home Medications ?Medication ?Instructions ?Recorded ?Confirmed bictegravir 50 mg-emtricitabine 1 tab PO BEDTIME 10/20/21 11/10/22 200 mg-tenofovir alafenam 25 mg tablet (Biktarvy) ipratropium 20 mcg-albuterol 100 1 puff inhalation QID PRN 10/20/21 11/10/22 mcg/actuation mist for inhalation (Combivent Respimat) levothyroxine 175 mcg tablet 175 mcg PO DAILY 10/20/21 11/10/22 multivitamin 1 tab PO DAILY 10/20/21 11/10/22 pravastatin 10 mg tablet 10 mg PO DAILY 10/20/21 11/10/22 Previous Rx's ?Medication ?Instructions ?Recorded prednisone 20 mg tablet 20 mg PO DAILY #4 tabs 06/06/21 bethanechol chloride 50 mg tablet 50 mg PO BID 30 days #60 tabs 01/11/23 oxycodone 5 mg tablet 5 mg PO Q6H PRN pain #10 tabs 07/30/23 Allergies Allergy/AdvReac Type Severity Reaction Status Date / Time No Known Allergies Allergy Verified 07/30/23 18:31 [No Known Allergies*] Review of Systems Review of Systems: Yes all other systems are reviewed and are negative [facility] Past Medical History Attestation statement: The following information was validated with the patient. Source: old records reviewed Medical History Hyperlipemia HIV (human immunodeficiency virus infection) (~2002) Hypothyroidism, postsurgical (~2007) History of radioactive iodine thyroid ablation (~2006) Nicotine dependence, cigarettes, uncomplicated History of rhabdomyolysis History of syncope History of Graves' disease (~2005) Renal calculi Hesitancy of micturition Surgical History History of colonoscopy History of cystoscopy History of total thyroidectomy (~2007) Social History Social History (Updated 12/01/22 @ 13:04 by Flor Ramos PA-C) Alcohol intake: never Patient Tobacco Use Status: Current everyday Tobacco user Years Smoked: (onset 31yo, 1ppd x 21yrs - 21pyh) Substance Use Type: Marijuana Advance Directives: No Advance Directives Information Provided: No Physical Exam Vital Signs: Vital Signs: Last Vital Signs Temp 98.2 F 07/30/23 21:57 Pulse 102 H 07/30/23 21:57 Resp 18 07/30/23 21:57 BP 134/86 07/30/23 21:57 Pulse Ox 96 07/30/23 21:57 O2 Del Method Room Air 07/30/23 21:57 BMI result Body Mass Index 30.4 Appearance: Alert.?Oriented to person, place and time. No acute distress.?Normal affect. Eyes: Pupils equal, round and reactive to light.? ENT: Pharynx normal.?? Neck: Normal inspection.? Neck supple.?? CVS: Heart sounds normal. Normal heart rate and rhythm.? Pulses normal.?? Respiratory: No respiratory distress.? Lung sounds clear to auscultation bilaterally. No palpable deformities of the chest wall. ? Abdomen: Soft and non-tender. Normoactive bowel sounds. Skin: Skin warm and dry.? Normal skin color.? Extremities: No lower extremity edema. Tenderness upon palpation of the right hip and proximal femur. No shortening. No rotation. 2+ DP/PT pulse bilaterally.? Neuro: Moves all extremities spontaneously. Sensation intact bilaterally. CN II-XII intact. No focal neuro deficits. Ambulates with normal steady gait. Course Reevaluation(s) Reevaluation #1: XR of the hip is without acute fracture dislocation. Was able to get out of bed and ambulate with slightly antalgic gait in the use of a cane. He expresses concern about being able to go home, stating he ?does not feel safe?. He states that when returning home today after the fall it took him 20 minutes to get up from the toilet and he is scared that he may fall again and hurt himself. Patient was advised to consider contacting family or friend that may stay with him for a few days and assist him as needed. We discussed physical therapy evaluation though based on his ambulatory status I think it is unlikely that he would meet requirements for short-term rehab. He states he is awaiting an appointment for outpatient physical therapy due to arthritis. He is requesting to be admitted to the hospital ?just for 1 night to be safe?. I did advise patient that there is no medical indication for admission at this time. We discussed outpatient pain management including acetaminophen/ibuprofen, and a short prescription for oxycodone which could be sent to his pharmacy. XR/XR hip RT w PEL1V IMPRESSION: Degenerative changes but no acute fracture or dislocation. Elongated femoral head/neck junction could be seen in the setting of cam type femoral acetabular impingement syndrome. XR/XR ribs RT min 3V w CXR1V IMPRESSION: Ribs are intact. No fractures are identified. No acute cardiopulmonary disease. Time: 22:00 Medications Administered Discontinued Medications Generic Name Dose Route Start Last Admin Trade Name Freedom PRN Reason Stop Dose Admin Ketorolac Tromethamine 30 mg 07/30/23 19:17 07/30/23 19:27 Ketorolac Tromethamine 30 Mg/Ml Vial IM 07/30/23 19:18 30 mg ONCE ONE Administration Oxycodone HCl 5 mg 07/30/23 19:17 07/30/23 19:27 Oxycodone Hcl Immed Release 5 Mg Tablet PO 07/30/23 19:18 5 mg ONCE ONE Administration Medical Decision Making Medical Decision Making MDM Narrative: Patient is a 53-year-old male with past medical history of HIV, hyperlipidemia, Graves disease with thyroidectomy and subsequent hypothyroidism presenting to emergency department for evaluation after mechanical trip and fall resulting in right hip pain and painful respiration on the right lateral chest as per HPI. Lung sounds present bilaterally, I have lower suspicion for pneumothorax, CXR to be obtained to evaluate for fracture no hypoxia or increased work of breathing.. Obtain XR of the right hip/pelvis to evaluate for fracture/dislocation. At this time extremities neurovascularly intact distally. Differential Diagnosis Differential Diagnoses: The differential diagnosis associated with the presentation includes (See narrative above) Independent Interpretation I performed an independent interpretation of an: Plain X-Ray (No acute fracture dislocation of the right hip, no acute rib fractures) Radiology Impression Discussion of test interpretation with radiology: I have reviewed the radiologist's reading. (See course narrative) External Record Review External record reviewed: Outpatient record Prescription Management I considered prescription management with: Pain Medication Discharge Plan Discharge Clinical Impression: Contusion of hip, Fall Patient Disposition: Home, Self-Care Instructions: R.I.C.E. Treatment (ED), Hip Contusion (ED) Additional Instructions: You can take ibuprofen 200 mg, 3 tablets (600mg) every 6-8 hours as needed for pain, in addition to Tylenol 500 mg, 2 tablets (1,000mg) every 4-6 hours as needed for pain, but not to exceed 3 doses daily (3,000mg).? For pain that is unrelieved by acetaminophen/ibuprofen, I have sent a prescription to the pharmacy for oxycodone. This is a narcotic medication. It may make you drowsy. It can be addictive. You should not drive, drink alcohol, or work while taking this medication. You may return back to emergency department any new or worsening symptoms or concerns. Please contact your primary care provider to arrange for a follow-up visit for persistent symptoms. Prescriptions: New oxycodone 5 mg tablet 5 mg PO Q6H PRN (Reason: pain) Qty: 10 0RF Rx Instructions: Partial Fill upon patient request. No Action bethanechol chloride 50 mg tablet 50 mg PO BID 30 Days Qty: 60 0RF prednisone 20 mg tablet 20 mg PO DAILY Qty: 4 0RF Biktarvy 50-200-25 mg tablet 1 tab PO BEDTIME Combivent Respimat 20-100 mcg/actuation mist 1 puff inhalation QID PRN pravastatin 10 mg tablet 10 mg PO DAILY levothyroxine 175 mcg tablet 175 mcg PO DAILY multivitamin Tablet 1 tab PO DAILY Referrals: Physician,Unknown J [Primary Care Provider] - Print Language: Jamaican
[2023-07-30] MEDS: Ketorolac Tromethamine 30 MG/ML VIAL IM (19:27)
[2023-07-30] MEDS: oxyCODONE HCl Immed Release 5 MG TABLET PO (19:27)
[2023-07-30 21:57] VITALS: BP 134/86; PULSE 102; RESP 18; TEMP 36.8; O2SAT 96
--- NOTE | 2023-07-30 22:49 | MHC.EDTECH ---
Patient was up walking with his cane ,and did fine ,Provider aware .
[2023-07-30 23:09] VITALS: BP 134/86; PULSE 102; RESP 18; TEMP 36.6; O2SAT 96
== END 2023-07-30 23:43 | disposition home or self-care (01) ==
PROVIDERS: Emergency Provider Emergency Medicine
DX: S70.01XA Contusion of right hip, initial encounter (principal); Z21 Asymptomatic human immunodeficiency virus [HIV] infection status; W01.0XXA Fall on same level from slipping, tripping and stumbling without subsequent striking against object, initial encounter; Y93.01 Activity, walking, marching and hiking; Y92.480 Sidewalk as the place of occurrence of the external cause; Y99.9 Unspecified external cause status
CPT/HCPCS: 71101; 73502; 96372; 99284; J1885

== ENCOUNTER 2023-08-13 11:50 | Outpatient (REF) | payer MEDICAID, SELFPAY | END 2023-08-13 11:51 | disposition home or self-care (01) | LOC: HO.HHCLNP 11:50 | PROVIDERS: Visit Provider Student in an Organized Health Care Education/Training Program | DX: B20 Human immunodeficiency virus [HIV] disease (principal) | CPT/HCPCS: 88112 ==

== ENCOUNTER 2023-12-05 08:33 | Outpatient (REF) | payer MEDICAID, SELFPAY ==
[2023-12-05 13:03] LABS: Cholesterol 185 mg/dL (<200); HDL Cholesterol 45 mg/dL (>40); LDL Cholesterol Calculated 111 mg/dL (<100); Triglycerides 146 mg/dL (<150)
[2023-12-05 13:05] LABS: TSH reflex Free T4 0.46 uIU/mL (0.32-4.0)
== END 2023-12-05 08:34 | disposition home or self-care (01) ==
LOC: HO.HHCL 08:33
PROVIDERS: Visit Provider Registered Nurse
DX: E78.5 Hyperlipidemia, unspecified (principal); E89.0 Postprocedural hypothyroidism
CPT/HCPCS: 36415; 80061; 84443

== ENCOUNTER 2024-01-04 08:36 | Outpatient (REF) | payer MEDICAID, SELFPAY ==
[2024-01-04 11:33] LABS: MANUAL DIFF FLAG NO
[2024-01-04 11:39] LABS: Basophils Percent Auto 0.6 % (0-2); Eosinophils Absolute Auto 0.2 X10*3/uL (0.0-0.4); Eosinophils Percent Auto 2.9 % (0-4); Hematocrit 49.5 % (42.0-52.0); Hemoglobin 16.9 g/dl (14.0-18.0); Imm Gran Abs Auto 0.01 X10*3/uL (0.00-0.03); Imm Gran Pct Auto 0.1 % (0.0-0.4); Lymphocytes Absolute Auto 2.8 X10*3/uL (1.2-4.9); Lymphocytes Percent Auto 40.5 % (20-40); Mean Corpuscular HGB Conc 34.1 g/dl (31.0-36.0); Mean Corpuscular Hemoglobin 30.8 pg (27.0-33.0); Mean Corpuscular Volume 90.3 fL (80.0-98.0); Monocytes Absolute Auto 0.4 X10*3/uL (0.1-1.2); Monocytes Percent Auto 5.4 % (2-11); Neutrophils Absolute Auto 3.4 x10*3/uL (2.0-8.3); Neutrophils Percent Auto 50.5 % (45-73); Platelet Count 198 X10*3/uL (160-400); Red Blood Count 5.48 X10*6/uL (4.60-5.80); Red Cell Distribution Width 13.3 % (11.0-16.0); White Blood Count 6.8 X10*3/uL (4.8-10.8)
[2024-01-04 11:55] LABS: Alanine Aminotransferase 31 U/L (0-40); Albumin Level 4.2 g/dL (3.5-5.0); Alkaline Phosphatase 86 U/L (39-117); Anion Gap 13 (12-20); Aspartate Amino Transferase 24 U/L (5-37); Bilirubin Total 0.3 mg/dL (0.0-1.0); Blood Urea Nitrogen 14 mg/dL (9-16); Calcium 9.6 mg/dL (8.4-10.2); Carbon Dioxide 23 mmol/L (22-29); Chloride 109 mmol/L (96-108); Estimated Glomerular Filt Rate > 60; Glucose Random 93 mg/dL (60-115); Potassium 4.1 mmol/L (3.3-5.1); Sodium 141 mmol/L (135-145); Total Protein 7.4 g/dL (6.5-8.0)
[2024-01-04 12:25] LABS: HBS Num1 5.14 mIU/mL (0-7.99); HBc Num1 5.82 S/CO (0.00-0.79); HBsAGNum1 0.29 S/CO (0.00-0.99); Hepatitis B Surface Antigen Negative (Negative); ~Hepatitis B Surface Antibody NONREACTIVE (Nonreactive)
[2024-01-04 12:26] LABS: Hepatitis A Antibody IgG Nonreactive (Nonreactive); ~Hepatitis A Antibody IgG 0.76 S/CO (0.00-0.99)
[2024-01-04 14:18] LABS: HBc Num2 5.85 S/CO; HBc Num3 5.84 S/CO; Hepatitis B Core Antibody Reactive (Nonreactive)
[2024-01-05 10:03] LABS: Hepatitis B Core Antibody IgM NON-REACTIVE (NON-REACTIVE)
[2024-01-07 22:18] LABS: TS Negative Control Passed; TS Panel A 0; TS Panel B 0; TS Positive Control Passed; TSpotTB Negative (Negative)
[2024-01-08 14:29] LABS: HIV RNA PCR Qn Copies NOT DETECTED copies/mL (NOT DETECTED); HIV RNA PCR Qn Log Copies NOT DETECTED (NOT DETECTED)
[2024-01-09 17:17] LABS: Absolute CD3 Count 1920 cells/uL (840-3060); Absolute CD4 Count 973 cells/uL (490-1740); Absolute CD8 Count 1035 cells/uL (180-1170); Absolute Lymphocytes 2596 cells/uL (850-3900); CD4 CD8 Ratio 0.94 (0.86-5.00); Percent CD3 Cells 74 % (57-85); Percent CD4 Cells 37 % (30-61); Percent CD8 Cells 40 % (12-42)
== END 2024-01-04 08:37 | disposition home or self-care (01) ==
LOC: HO.HHCL 08:36
PROVIDERS: Visit Provider Student in an Organized Health Care Education/Training Program
DX: B20 Human immunodeficiency virus [HIV] disease (principal)
CPT/HCPCS: 36415; 80053; 85025; 86359; 86360; 86481; 86704; 86705; 86706; 86708; 87340; 87536

== ENCOUNTER 2024-01-16 10:08 | Outpatient (AMB) | payer MEDICAID, SELFPAY ==
--- NOTE | 2024-01-16 10:16 | A.OFFVIS_ITS ---
Vital Signs 01/16/24 10:19 Height 5 ft 10 in Weight 219 lb 9.286 oz BMI 31.5 BP 132/88 Blood Pressure Location Rt brachial Position Sitting Pulse 90 Pulse Source Pulse Oximeter Pulse Oximetry (%) 99 Oxygen Delivery Method Room Air Intake Visit Reasons: Colonoscopy Screening Intake Note: Memo presents in office today for a scheduled colo consult. CC; Memo does have pertinent family hx. No current sx or additional concerns. This will be an initial/routine colo for him. Pt does report having concerns because he is HIV +. Pt states that his provider that manages his HIV reports that he has been well maintained and does not have any developing concerns. [place] Sifter Required: No Allergies No Known Allergies [No Known Allergies*] Allergy (Verified 01/16/24 10:17) HPI HPI Colonoscopy Screening: Details: 53 year old? male here today for pre colonoscopy screening.? Patient was sent to us by his PCP.? Patient had colonoscopy in his 30s in 2002. Ten years ago patient found out that his father had colorectal cancer. ? Patient denies any gastrointestinal symptoms in the past or at present.? Denies any personal or family history of gastrointestinal disease, colon polyps, or CRC.? Denies history of difficulty with sedation or anesthesia in the past.? Negative for history of sleep apnea.? Denies any history of cardiac, renal, pulmonary, or hepatic disease.?? No history of infectious? diseases like hepatitis A, B, C or tuberculosis.? History of HIV, patient is on Biktarvy, reports to be doing well. Patient is not on any anticoagulation. Patient has constipation, however now he is using docusate sodium twice a day and he is able to move his bowels better. Patient reports that he no longer has acid reflux. [facility] Medical History Hyperlipemia HIV (human immunodeficiency virus infection) (~2002) Hypothyroidism, postsurgical (~2007) History of radioactive iodine thyroid ablation (~2006) Nicotine dependence, cigarettes, uncomplicated History of rhabdomyolysis History of syncope History of Graves' disease (~2005) Renal calculi Hesitancy of micturition Surgical History History of colonoscopy History of cystoscopy History of total thyroidectomy (~2007) Social History Alcohol intake: never Patient Tobacco Use Status: Current everyday Tobacco user Years Smoked: (onset 31yo, 1ppd x 21yrs - 21pyh) Substance Use Type: Marijuana Review of Systems Const Denies weight gain and Denies weight loss ENT Reports no additional complaints, Denies dysphagia and Denies odynophagia Card Reports no additional complaints Resp Reports no additional complaints GI Denies abdominal pain, Denies belching, Denies melena, Denies bloating, Denies change in bowel habits, Denies dysphagia, Denies excessive flatus, Denies dyspepsia, Denies heartburn, Denies diarrhea, Denies loose stools, Denies nausea , Denies odynophagia and Denies vomiting Reports no additional complaints Musc Reports no additional complaints Neuro Reports no additional complaints Psych Reports no additional complaints Endo Reports no additional complaints Physical Exam Vital Signs: Last Vital Signs Pulse 90 01/16/24 10:19 BP 132/88 01/16/24 10:19 Pulse Ox 99 01/16/24 10:19 Oxygen Delivery Method Room Air 01/16/24 10:19 BMI result Body Mass Index 31.5 Const General: healthy appearing and no acute distress Nutritional Appearance: obese Orientation/consciousness: patient oriented x3 Resp Effort & Inspection: normal respiratory effort, able to speak in complete sentences, no tracheal deviation and symmetric chest movement Auscultation: clear to auscultation bilaterally Cardio Rate: regular rate GI Inspection: Yes normal to inspection, No distended and Yes obesity Palpation (GI): Soft to palpation, not firm, nontender and No hepatosplenomegaly present Auscultation: normal bowel sounds General: Yes no CVA tenderness Back/Spine/Pelvis Back: no CVA tenderness Skin General skin exam: elasticity normal, turgor normal and dry skin Neuro General: patient oriented x3 Psych Appearance: grossly normal Mental Status: mental status grossly normal Assessment & Plan Assessment & Plan (1) GERD (gastroesophageal reflux disease): Code(s): K21.9 - Gastro-esophageal reflux disease without esophagitis Category: Medical Qualifiers: Esophagitis presence: esophagitis presence not specified Qualified Code(s): K21.9 - Gastro-esophageal reflux disease without esophagitis (2) Constipation: Code(s): K59.00 - Constipation, unspecified Category: Medical Qualifiers: Constipation type: slow transit constipation Qualified Code(s): K59.01 - Slow transit constipation (3) Screen for colon cancer: Code(s): Z12.11 - Encounter for screening for malignant neoplasm of colon Plan Patient denies any GI, cardiac or respiratory symptoms.? Taking Colace twice a day and he is able to move his bowels well. Had colonoscopy in 2002. Family history of CRC. Denies any issues with anesthesia in the past.? Denies any history of sleep apnea.? Not on any anticoagulation therapy.? No family or personal history of colon cancer or polyps.? Patient denies melena, hematochezia, unintentional weight loss or ribbon like stools.? Discussed at length the pre-procedure,? prep, diet & medications as well as what to expect prior, during and after the procedure.?? Stressed the importance of good bowel prep.? Recommended the use of Vaseline or Calmoseptine OTC & baby wipes with bowel movements to promote comfort.? ?Patient verbalizes understanding and agrees to plan of care.? He was given the opportunity to ask questions and all questions answered.? We will see him after the procedure.? Medications: New bisacodyl (Dulcolax (bisacodyl)) take 4 tabs at noon the day before your colonoscopy 20 mg (4 x 5 mg) PO ONCE 1 day 4 tabs 0RF Z12.11 - Encounter for screening for malignant neoplasm of colon polyethylene glycol 3350 (Miralax) As directed by gastroenterology department at [facility] 238 grams PO ONCE 238 grams 0RF Z12.11 - Encounter for screening for malignant neoplasm of colon Coding Level of Care Code New Pt Level 3 (52692) Diagnoses Gastroesophageal reflux disease, unspecified whether esophagitis present K21.9 Esophagitis presence: esophagitis presence not specified Slow transit constipation K59.01 Constipation type: slow transit constipation Screen for colon cancer Z12.11 Time Spent (min) 40 Comment 30 minutes spent with patient and additional 10 minutes spent reviewing his records
[2024-01-16 10:19] VITALS: BP 132/88; PULSE 90; O2SAT 99; BMI 31.5
== END 2024-01-16 11:05 | disposition home or self-care (01) ==
PROVIDERS: Visit Provider Nurse Practitioner Family
DX: K21.9 Gastro-esophageal reflux disease without esophagitis (principal); K59.01 Slow transit constipation; Z12.11 Encounter for screening for malignant neoplasm of colon
CPT/HCPCS: 99203

== ENCOUNTER → 2024-01-16 10:08 | Outpatient (BNVA) | payer MEDICAID, SELFPAY | PROVIDERS: Visit Provider Nurse Practitioner Family | DX: Z12.11 Encounter for screening for malignant neoplasm of colon (principal); K21.9 Gastro-esophageal reflux disease without esophagitis; K59.01 Slow transit constipation | CPT/HCPCS: 99212 ==

== ENCOUNTER 2024-05-14 10:03 | Day surgery (SDC) | payer MEDICAID, SELFPAY ==
[2024-05-12 14:29] VITALS: BMI 31.6
--- NOTE | 2024-05-13 09:11 | HO.ANESPROP2 ---
HPI - Anesthesia Eval Consult details Narrative: 54yo M for Colonoscopy [facility] Active Problems Active Problems: All Active Problems HIV (human immunodeficiency virus infection) (Acute ~2002) Hypothyroidism, postsurgical (Acute ~2007) Hypertension (Acute) Hyperlipemia (Acute) COPD (chronic obstructive pulmonary disease) (Acute) Nicotine dependence, cigarettes, uncomplicated (Acute) Anxiety (Acute) GERD (gastroesophageal reflux disease) (Acute) Constipation (Acute) BPH (benign prostatic hyperplasia) (Acute) Urinary urgency (Acute) Renal calculi (Acute) Hesitancy of micturition (Acute) Pityriasis rosea (Acute) Past Medical History Medical History Hyperlipemia HIV (human immunodeficiency virus infection) (~2002) Hypothyroidism, postsurgical (~2007) History of radioactive iodine thyroid ablation (~2006) Nicotine dependence, cigarettes, uncomplicated History of rhabdomyolysis History of syncope History of Graves' disease (~2005) Renal calculi Hesitancy of micturition Surgical History Surgical History History of colonoscopy History of cystoscopy History of total thyroidectomy (~2007) Social History Social History Alcohol intake: never Patient Tobacco Use Status: Current everyday Tobacco user Years Smoked: (onset 31yo, 1ppd x 21yrs - 21pyh) Substance Use Type: Marijuana Meds Allergies Allergy/AdvReac Type Severity Reaction Status Date / Time No Known Allergies Allergy Verified 01/16/24 10:17 [No Known Allergies*] Home Medications ?Medication ?Instructions ?Recorded ?Confirmed ?Last Taken ?Type bictegravir 50 mg-emtricitabine 1 tab PO BEDTIME 10/20/21 05/12/24 Unknown History 200 mg-tenofovir alafenam 25 mg tablet (Biktarvy) ipratropium 20 mcg-albuterol 100 1 puff inhalation QID PRN 10/20/21 05/12/24 Unknown History mcg/actuation mist for inhalation Shortness Of Breath Or Wheezing (Combivent Respimat) blood pressure test kit-large #1 ea 01/16/24 Unknown History docusate sodium 100 mg capsule 100 mg PO BID PRN constipation 01/16/24 05/12/24 Unknown History levothyroxine 200 mcg tablet 200 mcg PO QAM 01/16/24 05/12/24 Unknown History pravastatin 20 mg tablet 20 mg PO DAILY 01/16/24 05/12/24 Unknown History Exam Height,Weight and Vital Signs: Height 5 ft 10 in Weight 99.79 kg Assessment and Plan Assessment Anesthesia Assessment: Chart Reviewed
[2024-05-14 10:58] VITALS: BP 128/90; PULSE 90; RESP 16; TEMP 36.9; O2SAT 97; BMI 30.8
[2024-05-14] MEDS: Lactated Ringers 1,000 ML 100 ML IVCONT (11:14)
--- NOTE | 2024-05-14 11:46 | MHC.SHP ---
Pre-Procedural Eval Section A - 24 Hr Update-Section A only Date of Service: 05/14/24 Section B - Complete if H&P > 30 days Chief Complaint: Slow transit constipation,screening Details of Present Illness: fh CRC Relevant Family History (Specify if Yes): Yes Relevant Social History: Tobacco Use Present Medications: see Short Stay Collaborative assessment Medical History: Significant History (Hyperlipemia HIV (human immunodeficiency virus infection) (~2002) Hypothyroidism, postsurgical (~2007) History of radioactive iodine thyroid ablation (~2006) Nicotine dependence, cigarettes, uncomplicated History of rhabdomyolysis History of syncope History of Graves' disease (~2005) Renal calculi H) History of Previous Operations: Relevant previous surgery/procedure and date(s) (History of colonoscopy History of cystoscopy History of total thyroidectomy (~2007)) Allergies: Allergies Allergy/AdvReac Type Severity Reaction Status Date / Time No Known Allergies Allergy Verified 01/16/24 10:17 [No Known Allergies*] Review of Systems Sugical H&P ROS: Negative: Constitution, Cardiovascular, Respiratory, Neurological, Psychiatric, Hem-Onc, Allergic/Immunologic, Gastrointestinal, Genitourinary, Musculoskeletal, Integumentary, Endocrine and Eyes/Ears/Nose/Throat Exam Surgical H&P Exam: Normal: HEENT, Normal: Heart, Normal: Lungs, Normal: Extremities, Normal: Abdomen, Normal: Skin and Normal: Neurological Plan Diagnosis/Plan: Unchanged I have reviewed the history and physical and performed a pertinent physical examination on my patient. No changes have occurred unless specified. Time Spent With Patient Time: Total time managing care of this patient today ____ minutes.
--- OUTSIDE RECORDS SUMMARY | 2024-05-14 11:54 | XMS_ITS | Clinical Summary ---
Author Organization [facility] Address [address] [place] [address] Care Team Providers Care Flight Test Engineer Name Role Phone Taylor Mitchell RN Primary Care Provider Social History Tobacco Use Types Packs/Day Years Used Date Smoking Tobacco: Never Assessed Sex and Gender Information Value Date Recorded Sex Assigned at Not on file Gender Identity Not on file Sexual Orientation Not on file Job Start Date Occupation Industry Not on file Not on file Not on file Plan of Treatment Upcoming Encounters Date Type Department Care Team ([facility] st Contact Info) Description 05/21/2024 9:30 AM EST Consult Orthopedic Surgery - [place] [address] [phone] Remy Tillman, DPM [address] [address] Health Maintenance Due Date Last Done Comments DTaP,Tdap,and Td Vaccines (1 - Tdap) 1991 Hepatitis B Vaccines (1 of 3 - 19+ 3-dose series) 1991 Zoster Vaccines (1 of 2) 2022 COVID-19 Vaccine ( - 2023-2 5 season) 2023 Influenza Vaccine (#1) 2023 Cholesterol Screening (Lipid Panel) 02/10/2024 Colorectal Cancer Screening: Colonoscopy 02/10/2024 Depression Screening 02/10/2024 HIV Screening 02/10/2024 Hepatitis C Screening 02/10/2024 Social Influencers of Health Screening 02/10/2024 HIB Vaccines Aged Out No longer eligi ble based on patient's age to complete this topic HPV Vaccines Aged Out No longer eligi ble based on patient's age to complete this topic Hepatitis A Vaccines Aged Out No long er eligible based on patient's age to complete this topic IPV Vaccines Aged Out No longer eligi ble based on patient's age to complete this topic MMR Vaccines Aged Out No longer eligi ble based on patient's age to complete this topic Meningococcal ACWY Vaccine Aged Out N o longer eligible based on patient's age to complete this topic Pneumococcal Vaccine: Pediat rics (0 to 5 Years) and At-Risk Patients (6 to 64 Years) Aged Out No longer eligible b ased on patient's age to complete this topic RSV Immunization Patients Un monika 20 months Aged Out No longer eligible b ased on patient's age to complete this topic Varicella Vaccines Aged Out No longer eligible based on patient's age to complete this topic Care Teams Flight Test Engineer Relationship Specialty Start Date End Date Taylor Mitchell RN [address] [address] [place] [id number] PCP - General 01/17/24
--- NOTE | 2024-05-14 12:17 | P.OPN-COLO_ITS ---
Colonoscopy Operative Note Operative Note Date of Service: 05/14/24 Narrative: Operative Information Procedure Description: Colonoscopy Indication: screening Anesthesia: MAC COLONOSCOPY Instrument: Olympus variable stiffness pediatric scope 190L Colonoscopy Monitoring: Vital signs and clinical assessment, continuous EKG monitoring, Pulse oximetry, Carbon Dioxide monitoring and blood pressure monitoring were done throughout the procedure. Colon withdrawal time was 15 minutes. Procedure: The patient was placed in the left lateral decubitis position and pre-procedure medications were administered. After a digital rectal examination of the ano-rectum, the video colonoscope was inserted into the rectum and advanced through the colon to the cecum/TI. The colonoscope was slowly withdrawn in a retrograde panoramic fashion and the colon mucosa was carefully examined including a retroflexed view of the rectum. Findings and interventions are described below. Procedure Difficulty: easy Findings: Terminal Ewhxq-bjttcd-vnsqhucmuownc intubated Cecum:normal Ascending Colon: normal Transverse Colon -normal Descending Colon:normal Sigmoid Colon: x 2 sessiel polyps removed with cold snare, 4-6 mm Rectum: Retroflexion with small internal hemorrhoids seen, grade I Anorectum - normal Intervention: cold snare Colon preparation: [place] Bowel Preparation Scale Right colon; 2 Transverse colon: 2 Left colon; 2 (0 = Unprepared colon segment with mucosa not seen due to solid stool that cannot be cleared. 1 = Portion of mucosa of the colon segment seen, but other areas of the colon segment not well seen due to staining, residual stool and/or opaque liquid. 2 = Minor amount of residual staining, small fragments of stool and/or opaque liquid, but mucosa of colon segment seen well. 3 = Entire mucosa of colon segment seen well with no residual staining, small fragments of stool or opaque liquid) Impression and Post Procedure Diagnosis: colon polyps internal hemorrhoids Plan: High fiber diet leaflet Avoid straining at stool, epsom salts and sitz bath, anusol supps or cream Repeat Colonoscopy in 5 years due to FH of CRC in father or earlier if clinically indicated Above findings were reviewed with the patient and relevant handouts were provided if indicated.
[2024-05-14 12:20] VITALS: BP 114/80; PULSE 98; RESP 16; TEMP 36.8; O2SAT 94
[2024-05-14 12:35] VITALS: BP 125/77; PULSE 87; RESP 16; TEMP 36.8; O2SAT 97
--- NOTE | 2024-05-14 13:42 | HO.INF ---
patient left without signing discharge instructions. discharge instructions given to patient over the telephone and then mailed to patient
== END 2024-05-14 13:25 | disposition home or self-care (01) ==
PROVIDERS: PCP Student in an Organized Health Care Education/Training Program; Visit Provider Internal Medicine Gastroenterology
PROC: 0DJD8ZZ Inspection of Lower Intestinal Tract, Via Natural or Artificial Opening Endoscopic (ICD-10-PCS; CPT 45378; principal; 2024-05-14 12:40)
DX: Z12.11 Encounter for screening for malignant neoplasm of colon (principal); K59.01 Slow transit constipation; K63.5 Polyp of colon; K64.0 First degree hemorrhoids; E78.5 Hyperlipidemia, unspecified; E89.0 Postprocedural hypothyroidism; B20 Human immunodeficiency virus [HIV] disease; M62.82 Rhabdomyolysis; Z79.899 Other long term (current) drug therapy; Z98.890 Other specified postprocedural states; F17.210 Nicotine dependence, cigarettes, uncomplicated
CPT/HCPCS: 45385; 88305; J2003; J2704

== ENCOUNTER → 2024-05-14 10:03 | Outpatient (BNV) | payer MEDICAID, SELFPAY | PROVIDERS: PCP Student in an Organized Health Care Education/Training Program; Visit Provider Internal Medicine Gastroenterology | DX: Z12.11 Encounter for screening for malignant neoplasm of colon (principal); K63.5 Polyp of colon; K64.0 First degree hemorrhoids | CPT/HCPCS: 45385 ==

== ENCOUNTER 2024-05-28 12:50 | Outpatient (AMB) | payer MEDICAID, SELFPAY ==
--- NOTE | 2024-05-28 13:10 | MHC.OFFVIS ---
Vital Signs 05/28/24 13:11 Height 5 ft 10 in Weight 219 lb 2.232 oz BMI 31.4 BP 122/80 Blood Pressure Location Rt brachial Position Sitting Pulse 82 Pulse Source Pulse Oximeter Pulse Oximetry (%) 97 Oxygen Delivery Method Room Air Intake Visit Reasons: S/P [place] Intake Note: ESTABLISHED PATIENT for s/p colo FUV. Chief Complaint; Pt would like to once again review results in addition to discussing details surrounding hemorrhoid prevention and mgmt. Pt denies any additional concerns. Computer Forensic Specialist Required: No Accompanied by: Self / Same As Patient Allergies No Known Allergies [No Known Allergies*] Allergy (Verified 05/28/24 13:11) HPI HPI S/P Andre [place]: Details: LAST VISIT GERD (gastroesophageal reflux disease) Constipation Screen for colon cancer Plan Patient denies any GI, cardiac or respiratory symptoms.? Taking Colace twice a day and he is able to move his bowels well. Had colonoscopy in 2002. Family history of CRC. Denies any issues with anesthesia in the past.? Denies any history of sleep apnea.? Not on any anticoagulation therapy.? No family or personal history of colon cancer or polyps.? Patient denies melena, hematochezia, unintentional weight loss or ribbon like stools.? Discussed at length the pre-procedure,? prep, diet & medications as well as what to expect prior, during and after the procedure.?? Stressed the importance of good bowel prep.? Recommended the use of Vaseline or Calmoseptine OTC & baby wipes with bowel movements to promote comfort.? ?Patient verbalizes understanding and agrees to plan of care.? He was given the opportunity to ask questions and all questions answered.? We will see him after the procedure.? Medications New bisacodyl (Dulcolax (bisacodyl)) take 4 tabs at noon the day before your colonoscopy 20 mg (4 x 5 mg) PO ONCE 1 day 4 tabs 0RF Z12.11 polyethylene glycol 3350 (Miralax) As directed by gastroenterology department at [facility] 238 grams PO ONCE 238 grams 0RF Z12.11 COLONOSCOPY Findings: Terminal Jnwpf-dmhygl-nmhurazxmemok intubated Cecum:normal Ascending Colon: normal Transverse Colon -normal Descending Colon:normal Sigmoid Colon: x 2 sessiel polyps removed with cold snare, 4-6 mm Rectum: Retroflexion with small internal hemorrhoids seen, grade I Anorectum - normal Intervention: cold snare Colon preparation: [place] Bowel Preparation Scale Right colon; 2 Transverse colon: 2 Left colon; 2 (0 = Unprepared colon segment with mucosa not seen due to solid stool that cannot be cleared. 1 = Portion of mucosa of the colon segment seen, but other areas of the colon segment not well seen due to staining, residual stool and/or opaque liquid. 2 = Minor amount of residual staining, small fragments of stool and/or opaque liquid, but mucosa of colon segment seen well. 3 = Entire mucosa of colon segment seen well with no residual staining, small fragments of stool or opaque liquid) Impression and Post Procedure Diagnosis: colon polyps internal hemorrhoids Plan: High fiber diet leaflet Avoid straining at stool, epsom salts and sitz bath, anusol supps or cream Repeat Colonoscopy in 5 years due to FH of CRC in father or earlier if clinically indicated PATHOLOGY RESULTS Diagnosis Colon, sigmoid, polyps: Colonic mucosa with minor hyperplastic changes (1 piece); no adenomatous dysplasia seen. TODAY'S VISIT Patient is here today for follow-up and to discuss colonoscopy results. Patient denies any ill effects from the prep, anesthesia or procedure itself. Patient reports to be feeling well. Still has occasional constipation, however takes docusate sodium twice a day. Sometimes reports that he has to push to have a bowel movement. Two small hyperplastic polyps found in sigmoid colon, however due to family history of CRC patient will return for colonoscopy in 5 years. Internal hemorrhoids found. Patient denies any rectal pain, melena or hematochezia. Reports to have good appetite no issues. Denies dyspepsia, dysphagia or odynophagia. Denies any other GI concerning symptoms. [facility]LY [facility] Medical History (Updated 05/28/24 @ 13:32 by Annmarie Mckeon [facility]-) Family history of colorectal cancer Hyperlipemia HIV (human immunodeficiency virus infection) (~2002) Hypothyroidism, postsurgical (~2007) History of radioactive iodine thyroid ablation (~2006) Nicotine dependence, cigarettes, uncomplicated History of rhabdomyolysis History of syncope History of Graves' disease (~2005) Renal calculi Hesitancy of micturition Surgical History History of colonoscopy History of cystoscopy History of total thyroidectomy (~2007) Social History Alcohol intake: never Patient Tobacco Use Status: Current everyday Tobacco user Cigarette Packs Per Day: 1 Cigarettes Per Day: 20.0 Years Smoked: (onset 31yo, 1ppd x 21yrs - 21pyh) Substance Use Type: Marijuana Review of Systems Const Denies weight gain and Denies weight loss ENT Reports no additional complaints, Denies dysphagia and Denies odynophagia Card Reports no additional complaints Resp Reports no additional complaints GI Denies abdominal pain, Denies belching, Denies melena, Denies bloating, Denies change in bowel habits, Denies dysphagia, Denies excessive flatus, Denies dyspepsia, Denies heartburn, Denies diarrhea, Denies loose stools, Denies nausea, Denies odynophagia and Denies vomiting Reports no additional complaints Musc Reports no additional complaints Neuro Reports no additional complaints Psych Reports no additional complaints Endo Reports no additional complaints Physical Exam Vital Signs: Last Vital Signs Pulse 82 05/28/24 13:11 BP 122/80 05/28/24 13:11 Pulse Ox 97 05/28/24 13:11 Oxygen Delivery Method Room Air 05/28/24 13:11 BMI result Body Mass Index 31.4 Const General: healthy appearing and no acute distress Nutritional Appearance: obese Orientation/consciousness: patient oriented x3 Resp Effort & Inspection: normal respiratory effort, able to speak in complete sentences, no tracheal deviation and symmetric chest movement Auscultation: clear to auscultation bilaterally Cardio Rate: regular rate GI Inspection: Yes normal to inspection, No distended and Yes obesity Palpation (GI): Soft to palpation, not firm, nontender and No hepatosplenomegaly present Auscultation: normal bowel sounds General: Yes no CVA tenderness Back/Spine/Pelvis Back: no CVA tenderness Skin General skin exam: elasticity normal, turgor normal and dry skin Neuro General: patient oriented x3 Psych Appearance: grossly normal Mental Status: mental status grossly normal Assessment & Plan Assessment & Plan (1) GERD (gastroesophageal reflux disease): Code(s): K21.9 - Gastro-esophageal reflux disease without esophagitis Category: Medical Qualifiers: Esophagitis presence: esophagitis presence not specified Qualified Code(s): K21.9 - Gastro-esophageal reflux disease without esophagitis (2) Constipation: Code(s): K59.00 - Constipation, unspecified Category: Medical Qualifiers: Constipation type: slow transit constipation Qualified Code(s): K59.01 - Slow transit constipation (3) Family history of colorectal cancer: Code(s): Z80.0 - Family history of malignant neoplasm of digestive organs Category: Medical (4) Status post colonoscopy: Code(s): Z98.890 - Other specified postprocedural states Plan Patient was encouraged to take the Colace in the evening 2 capsules. Increase fluid intake and activity to promote better bowel motility. Patient was encouraged to take fiber with pre and probiotics. Increase fiber in his diet. Colonoscopy will be repeated in 5 years due to family history of CRC. Hyperplastic polyps without dysplasia found. Patient will follow-up in our office as needed. He is agreeable to this plan and verbalizes understanding of instructions. He was given the opportunity to ask questions and all questions answered. Thank you for allowing me to participate in his care Medications: Changed From docusate sodium 100 mg PO BID PRN constipation To docusate sodium 200 mg (2 x 100 mg) PO BEDTIME 180 caps 4RF constipation Coding Level of Care Code Est Pt Level 3 (74024) Diagnoses Gastroesophageal reflux disease, unspecified whether esophagitis present K21.9 Esophagitis presence: esophagitis presence not specified Slow transit constipation K59.01 Constipation type: slow transit constipation Family history of colorectal cancer Z80.0 Status post colonoscopy Z98.890 Time Spent (min) 25 Comment 15 minutes spent with patient and additional 10 minutes spent reviewing his records
[2024-05-28 13:11] VITALS: BP 122/80; PULSE 82; O2SAT 97; BMI 31.4
--- OUTSIDE RECORDS SUMMARY | 2024-05-28 14:11 | XMS_ITS | Clinical Summary ---
Author Organization 175 [facility] Address [address] [place] [address] Phone Care Team Providers Care Prison Keeper Name Role Phone Taylor Mitchell RN Primary Care Provider Social History Tobacco Use Types Packs/Day Years Used Date Smoking Tobacco: Never Assessed Sex and Gender Information Value Date Recorded Sex Assigned at Not on file Legal Sex Male 4:38 PM EDT Gender Identity Not on file Sexual Orientation Not on file Plan of Treatment Upcoming Encounters Date Type Department Care Team ([facility] st Contact Info) Description 07/10/2024 11:00 AM EDT Consult Orthopedic Surgery - [place] [address] [phone] Remy Tillman, DPM [address] [address] Health Maintenance Due Date Last Done Comments DTaP,Tdap,and Td Vaccines (1 - Tdap) 1979 Hepatitis B Vaccines (1 of 3 - 19+ 3-dose series) 1991 Pneumococcal Vaccine: 50+ Ye ars (1 of 1 - PCV) 2022 Zoster Vaccines (1 of 2) 2022 COVID-19 [...] patient's age to complete this topic Meningococcal B Vacine Aged Out No lo nger eligible based on patient's age to complete [...] on patient's age to complete this topic Insurance MEDICAID - [place] Care Teams Prison Keeper Relationship Specialty Start Date End Date Taylor Mitchell RN [address] [place] [id number] PCP - General 01/17/24
== END 2024-05-28 15:09 | disposition home or self-care (01) ==
PROVIDERS: PCP Student in an Organized Health Care Education/Training Program; Visit Provider Nurse Practitioner Family
DX: K21.9 Gastro-esophageal reflux disease without esophagitis (principal); K59.01 Slow transit constipation; Z80.0 Family history of malignant neoplasm of digestive organs; Z98.890 Other specified postprocedural states
CPT/HCPCS: 99213

== ENCOUNTER → 2024-05-28 12:50 | Outpatient (BNVA) | payer MEDICAID, SELFPAY | PROVIDERS: PCP Student in an Organized Health Care Education/Training Program; Visit Provider Nurse Practitioner Family | DX: K59.01 Slow transit constipation (principal); K21.9 Gastro-esophageal reflux disease without esophagitis; Z80.0 Family history of malignant neoplasm of digestive organs; Z98.890 Other specified postprocedural states | CPT/HCPCS: 99212 ==

== ENCOUNTER 2024-06-23 11:42 | Outpatient (REF) | payer MEDICAID, SELFPAY ==
--- NOTE | ~2024-06-23 | XR_ITS ---
EXAMINATION: XR LUMBOSACRAL SPINE CLINICAL INFORMATION: acute pain COMPARISON: None available. TECHNIQUE: Three views of the lumbosacral spine. FINDINGS: Multilevel endplate sclerosis with a 10-20 % volume loss of the vertebral bodies more conspicuous at L3. No gross malalignment. No lytic or blastic lesions. Mild multilevel marginal osteophyte formation more conspicuous at L3. .. XR/XR lumbar spine 2-3V IMPRESSION: Multilevel spondylosis resulting in 10-20% volume loss more conspicuous at L3. Electronically signed by: Jose Martin Palma MD 06/23/2024 12:14 PM EDT
--- OUTSIDE RECORDS SUMMARY | 2024-06-23 13:23 | XMS_ITS | Clinical Summary ---
Author Organization 175 [facility] Address [address] [place] [address] Phone Care Team Providers Care Rn Mobile Name Role Phone Taylor Mitchell RN Primary Care Provider Social History Tobacco Use Types Packs/Day Years Used Date Smoking Tobacco: Never Assessed Sex and Gender Information Value Date Recorded Sex Assigned at Not on file Legal Sex Male 4:38 PM EDT Gender Identity Not on file Sexual Orientation Not on file Plan of Treatment Upcoming Encounters Date Type Department Care Team ([facility] st Contact Info) Description 07/10/2024 11:00 AM EDT Consult Orthopedic Surgery - [place] [address] [phone] Remy Tillman, DPM [address] [address] Health Maintenance Due Date Last Done Comments [...] topic Insurance [place] - [place] Care Teams Rn Mobile Relationship Specialty Start Date End Date Taylor Mitchell RN [address] [place] [phone] PCP - General 01/17/24
== END 2024-06-23 11:43 | disposition home or self-care (01) ==
LOC: HO.HHCX 11:42
PROVIDERS: Visit Provider Internal Medicine
DX: M54.50 Low back pain, unspecified (principal)
CPT/HCPCS: 72100

== ENCOUNTER → 2024-06-23 11:42 | Outpatient (BNV) | payer MEDICAID, SELFPAY | PROVIDERS: Visit Provider Radiology Diagnostic Radiology | DX: M47.896 Other spondylosis, lumbar region (principal) | CPT/HCPCS: 72100 ==

== ENCOUNTER 2024-07-17 09:33 | Outpatient (REF) | payer MEDICAID, SELFPAY ==
--- OUTSIDE RECORDS SUMMARY | 2024-07-17 10:00 | XMS_ITS | Clinical Summary ---
Author Organization 175 [facility] Address [address] [place] [address] Phone Care Team Providers Care Senior Applications Architect Name Role Phone Taylor Mitchell RN Primary Care Provider Allergies No known active allergies Encounters Date Type Department Care Team Description 07/10/2024 11:00 AM EDT Consult Orthopedic Surgery [facility] [address] [phone] Remy Tillman DPM Metatarsalgia of left foot (Primary Dx); Corns and callosities; Eccrine poroma of foot, left; Verruca plantaris from Last 3 Months Social History Tobacco Use Types Packs/Day Years Used Date Smoking Tobacco: Never Assessed Sex and Gender Information Value Date Recorded Sex Assigned at Not on file Legal Sex Male 4:38 PM EDT Gender Identity Not on file Sexual Orientation Not on file Last Filed Vital Signs Vital Sign Reading Time Taken Comments Blood Pressure - - Pulse - - Temperature - - Respiratory Rate - - Oxygen Saturation - - Inhaled Oxygen Concentration - - Weight 118 kg (260 lb) 07/10/2024 11:20 AM EDT Height 177.8 cm (5' 10 ) 07/10/2024 11:20 AM EDT Body Mass Index 37.31 07/10/2024 11:20 AM EDT Plan of Treatment Upcoming Encounters Date Type Department Care Team (Late st Contact Info) Description 08/19/2024 10:30 AM EDT Office Visit Orthopedic Surgery [facility] [address] [phone] Remy Tillman DPM [address] [address] Health Maintenance Due Date Last Done Comments Cholesterol Screening (Lipid Panel) 02/10/2024 Colorectal Cancer Screening: Colonoscopy 02/10/2024 Depression Screening 02/10/2024 HIV Screening 02/10/2024 Hepatitis C Screening 02/10/2024 Social Influencers of Health Screening 02/10/2024 DTaP,Tdap,and Td Vaccines (4 - Td or Tdap) 12/28/2031 12/27/2021, 11/16/2011, 11/12/2008 MMR Vaccines Aged Out 08/31/2022, 11/16/2011 No lo nger eligible based on patient's age to complete this topic Meningococcal ACWY Vaccine Aged Out 12/15, 02/08/2017, 10/19/2016 No longer eligible based on patient's age to complete this topic Pneumococcal Vaccine: 50+ Years Completed 08/13/2023, 09/30/2015, 05/27/2009, Additional history exists Pneumococcal Vaccine: Pediatrics (0 to 5 Years) and At-Risk Patients (6 to 64 Years) Completed 08/13/2023, 09/30/2015, 05/27/2009, Additional history exists Hepatitis A Vaccines Aged Out 02/25/2024, 05/27/2009, 11/12/2008 No longer eligible based on patient's age to complete this topic Influenza Vaccine Completed 02/25/2024, , 12/27/2021, Additional history exists COVID-19 Vaccine Completed 04/22/2024, , 07/16/2020, Additional history exists Zoster Vaccines Completed 06/03/2024, 02/25/2024 Hepatitis B Vaccines Completed 07/03/2024, 02/25/20 HIB Vaccines Aged Out No longer eligi [...] to complete this topic RSV Immunization Patients Under 20 months Aged Out No longer eligible based on patient's age to complete this topic Varicella Vaccines Aged Out No longer eligible based on patient's age to complete this topic Insurance [place] - [place] Care Teams Senior Applications Architect Relationship Specialty Start Date End Date Taylor Mitchell RN [address] [facility] 1 [place] [address] PCP - General 01/17/24
[2024-07-17 11:33] LABS: MANUAL DIFF FLAG NO
[2024-07-17 11:51] LABS: Basophils Absolute Auto 0.1 X10*3/uL (0.0-0.2); Basophils Percent Auto 0.7 % (0-2); Eosinophils Absolute Auto 0.2 X10*3/uL (0.0-0.4); Eosinophils Percent Auto 2.4 % (0-4); Hematocrit 46.7 % (42.0-52.0); Hemoglobin 15.5 g/dl (14.0-18.0); Imm Gran Abs Auto 0.03 X10*3/uL (0.00-0.03); Imm Gran Pct Auto 0.4 % (0.0-0.4); Lymphocytes Absolute Auto 2.8 X10*3/uL (1.2-4.9); Lymphocytes Percent Auto 37.4 % (20-40); Mean Corpuscular HGB Conc 33.2 g/dl (31.0-36.0); Mean Corpuscular Hemoglobin 30.6 pg (27.0-33.0); Mean Corpuscular Volume 92.3 fL (80.0-98.0); Mean Platelet Volume 11.1 fL (9.4-12.4); Monocytes Absolute Auto 0.3 X10*3/uL (0.1-1.2); Monocytes Percent Auto 4.3 % (2-11); Neutrophils Absolute Auto 4.1 x10*3/uL (2.0-8.3); Neutrophils Percent Auto 54.8 % (45-73); Platelet Count 190 X10*3/uL (160-400); Red Blood Count 5.06 X10*6/uL (4.60-5.80); Red Cell Distribution Width 13.2 % (11.0-16.0); White Blood Count 7.4 X10*3/uL (4.8-10.8)
[2024-07-17 12:18] LABS: Alkaline Phosphatase 90 U/L (39-117); Anion Gap 9 (12-20); Aspartate Amino Transferase 32 U/L (5-37); Bilirubin Total 0.2 mg/dL (0.0-1.0); Blood Urea Nitrogen 15 mg/dL (9-16); Calcium 8.8 mg/dL (8.4-10.2); Carbon Dioxide 29 mmol/L (22-29); Chloride 111 mmol/L (96-108); Estimated Glomerular Filt Rate > 60; Glucose Random 95 mg/dL (60-115); Potassium 4.2 mmol/L (3.3-5.1); Sodium 145 mmol/L (135-145); Total Protein 6.7 g/dL (6.5-8.0)
[2024-07-17 12:39] LABS: Alanine Aminotransferase 35 U/L (0-40)
[2024-07-20 08:09] LABS: HIV RNA PCR Qn Copies 84 copies/mL (NOT DETECTED); HIV RNA PCR Qn Log Copies 1.92 (NOT DETECTED)
[2024-07-22 16:13] LABS: Absolute CD3 Count 1924 cells/uL (840-3060); Absolute CD4 Count 1057 cells/uL (490-1740); Absolute CD8 Count 970 cells/uL (180-1170); Absolute Lymphocytes 2840 cells/uL (850-3900); CD4 CD8 Ratio 1.09 (0.86-5.00); Percent CD3 Cells 68 % (57-85); Percent CD4 Cells 37 % (30-61); Percent CD8 Cells 34 % (12-42)
== END 2024-07-17 09:34 | disposition home or self-care (01) ==
LOC: HO.HHCL 09:33
PROVIDERS: Visit Provider Internal Medicine
DX: Z21 Asymptomatic human immunodeficiency virus [HIV] infection status (principal)
CPT/HCPCS: 36415; 80053; 85025; 86359; 86360; 87536

== ENCOUNTER 2024-09-25 12:59 | Outpatient (REF) | payer MEDICAID, SELFPAY ==
--- NOTE | ~2024-09-25 | MM_ITS ---
EXAMINATION: DXA BONE DENSITY AXIAL HISTORY: pt > 50 y of age on ARV for HIC needs osteoporosis screening TECHNIQUE: [place] Dual energy absorptiometry (DEXA) of the lumbar spine, total left hip, and femoral neck was performed. COMPARISON: There are no prior studies for comparison. FINDINGS: The bone mineral density of the lumbar spine is 1.235, corresponding to a T-score of 0.1, and a Z-score of -0.4. This is indicative of normal bone mineral density. The bone mineral density of the left total hip is 0.961, corresponding to a T-score of -1.0, and a Z-score of -1.0. This is indicative of normal bone mineral density. The bone mineral density of the left femoral neck is 0.917, corresponding to a T-score of -1.2, and a Z-score of -1.0. This is indicative of osteopenia. FRACTURE RISK: The FRAX index suggests a risk of major osteoporotic fracture of 2.8%, and of hip fracture 0.4%. MM/XR DEXA axial skeleton IMPRESSION: Based on bone mineral density, and according to World Health Organization (WHO) criteria, the diagnosis is consistent with osteopenia. All bone density values are in grams per centimeter squared (g/cm2). Statistically, 68% of repeat scans fall within 1 SD (+/- 0.010 g/cm2 for AP spine L1-L4) and 1 SD (+/- 0.012 g/cm2 for femur total) FRAX is a trademark of the [employer]'s [facility], a World Health Organization (WHO) Collaborating Center. Electronically signed by: Kishan Lares MD 09/25/2024 01:42 PM EDT
--- OUTSIDE RECORDS SUMMARY | 2024-09-25 15:05 | XMS_ITS | Clinical Summary ---
Author Organization 175 [facility] Address [address] [place] [address] Phone Care Team Providers Care Canvas Worker Name Role Phone Taylor Mitchell RN Primary Care Provider Allergies No known active allergies Medications acetaminophen (TYLENOL) 500 mg tablet TAKE 2 TABLETS BY MOUTH EVERY 8 HOURS NEEDED FOR MILD PAIN FOR UP TO 10 DAYS 5 Active Biktarvy 50-200-25 mg per tablet Take 1 tablet by mouth. at bedtime 5 Active chlorhexidine (PERIDEX) 0.12 % solution RINSE FOR 30 SECONDS WITH A HALF OUNCE (15ml) TWICE DAILY, SPIT OUT -- DO NOT SWALLOW. DO NOT EAT OR DRINK FOR 30 MINUTES AFTER 4 Active docusate sodium (COLACE) 100 mg capsule Take 1 capsule (100 mg total) by mouth 2 (two) times a day if needed. for constipation 5 Active ibuprofen (ADVIL,MOTRIN) 600 mg tablet Take 1 tablet (600 mg total) by mouth every 6 (six) hours if needed. for mild pain 4 Active pravastatin (PRAVACHOL) 40 mg tablet TAKE 1 TABLET BY MOUTH ONCE DAILY (cholesterol) 5 Active varenicline tartrate (CHANTIX JEANETH) 0.5 mg (11)- 1 mg (42) tablet See administration instructions. as directed 4 Active levothyroxine (SYNTHROID, LEVOTHROID) 200 mcg tablet Take 1 tablet (200 mcg total) by mouth 1 (one) time each day before breakfast. Active tamsulosin (FLOMAX) 0.4 mg 24 hr capsule Take 1 capsule (0.4 mg total) by mouth 1 (one) time each day. Capsules should be taken 30 minutes following the same meal each day. Active Combivent Respimat 20-100 mcg/actuation inhaler INHALE 1 PUFF 4 TIMES A DAY, MAY TAKE ADDITIONAL PUFFS NEEDED. (MAX OF 6 PUFFS PER DAY) Active tolterodine LA (DETROL LA) 2 mg 24 hr capsule Take 1 capsule (2 mg total) by mouth 1 (one) time each day. Do not crush, chew, or split. Active Encounters Date Type Department Care Team Description 08/19/2024 10:30 AM EDT Office Visit Orthopedic Surgery [facility] [address] [phone] Remy Tillman DPM Metatarsalgia of left foot (Primary Dx); Verruca plantaris; Eccrine poroma of foot, left; Follow-up exam 07/10/2024 11:00 AM EDT Consult Orthopedic [facility] [address] [phone] Remy Tillman DPM Metatarsalgia of left foot [...] Care Team (Late st Contact Info) Description 12/03/2024 9:45 AM EDT Office Visit Orthopedic [facility] [address] [phone] Remy Tillman DPM [address] [place] [address] Health Maintenance Due Date Last Done Comments Cholesterol Screening (Lipid Panel) 02/10/2024 Colorectal Cancer Screening: Colonoscopy 02/10/2024 Depression Screening 02/10/2024 HIV Screening 02/10/2024 Hepatitis C Screening 02/10/2024 Social Influencers of Health Screening 02/10/2024 COVID-19 Vaccine (5 - Moderna risk season) 2024 04/22/2024, 04/07/2021, 07/16/2020, Additional history exists DTaP,Tdap,and Td Vaccines (4 - Td or [...] Completed 02/25/2024, , 12/27/2021, Additional history exists Zoster Vaccines Completed 06/03/2024, 02/25/2024 Hepatitis B Vaccines Completed 07/03/2024, 02/25/20 24 HIB Vaccines Aged Out No longer eligi ble based on patient's age to complete this topic HPV Vaccines Aged Out No longer eligi ble based on patient's age to complete this topic IPV Vaccines Aged Out No longer eligi ble based on patient's age to complete this topic Meningococcal B Vaccine Aged Out No l onger eligible based on patient's age to complete this topic RSV Immunization Patients Under 20 months Aged Out No longer eligible based on patient's age to complete this topic Varicella Vaccines Aged Out No longer eligible based on patient's age to complete this topic Insurance [place] - [place] Care Teams Canvas Worker Relationship Specialty Start Date End Date Taylor Mitchell RN [address] [facility] [employer] [facility] 1 [place] [address] PCP - General 01/17/24
== END 2024-09-25 13:00 | disposition home or self-care (01) ==
LOC: HO.MAMMO 12:59
PROVIDERS: PCP Student in an Organized Health Care Education/Training Program; Visit Provider Student in an Organized Health Care Education/Training Program
DX: Z13.820 Encounter for screening for osteoporosis (principal); Z21 Asymptomatic human immunodeficiency virus [HIV] infection status; M85.852 Other specified disorders of bone density and structure, left thigh
CPT/HCPCS: 77080

== ENCOUNTER → 2024-09-25 13:00 | Outpatient (BNV) | payer MEDICAID, SELFPAY | PROVIDERS: PCP Student in an Organized Health Care Education/Training Program; Visit Provider Radiology Diagnostic Radiology | DX: Z13.820 Encounter for screening for osteoporosis (principal) | CPT/HCPCS: 77080 ==

== ENCOUNTER 2024-10-31 08:07 | Outpatient (REF) | payer MEDICAID, SELFPAY ==
--- OUTSIDE RECORDS SUMMARY | 2024-10-31 08:11 | XMS_ITS | Clinical Summary ---
Author Organization 175 [facility] Address [address] [place] [address] Phone Care Team Providers Care Orthodontic Band Maker Name Role Phone Taylor Mitchell RN Primary [...] 10:30 AM EDT Office Visit Orthopedic Surgery [facility] [address] [phone] Remy Tillman DPM Metatarsalgia of left foot (Primary Dx); Verruca plantaris; Eccrine poroma of foot, left; Follow-up exam from Last 3 Months Social History Tobacco [...] 12/03/2024 9:45 AM EDT Office Visit Orthopedic Surgery [facility] [address] [phone] Remy Tillman DPM [address] [id number] Health Maintenance Due Date Last Done Comments Cholesterol Screening (Lipid Panel) 02/10/2024 Colorectal Cancer Screening: Colonoscopy 02/10/2024 Depression Screening 02/10/2024 HIV Screening 02/10/2024 Hepatitis C Screening 02/10/2024 Social Influencers of Health Screening 02/10/2024 COVID-19 Vaccine (5 - Moderna risk 2023- season) 2024 04/22/2024, 04/07/2021, 07/16/2020, Additional history exists Influenza Vaccine (#1) 2024 , 04/11/2023, 12/27/2021, Additional history exists DTaP,Tdap,and Td Vaccines (4 [...] on patient's age to complete this topic Zoster Vaccines Completed 06/03/2024, 02/25/2024 Hepatitis B [...] to complete this topic Insurance [place] - [place] Care Teams Orthodontic Band Maker Relationship Specialty Start Date End Date Taylor Mitchell RN [address] [place] [id number] PCP - General 01/17/24
[2024-10-31 11:22] LABS: MANUAL DIFF FLAG NO
[2024-10-31 11:32] LABS: Hematocrit 51.7 % (42.0-52.0); Hemoglobin 17.2 g/dl (14.0-18.0); Imm Gran Abs Auto 0.01 X10*3/uL (0.00-0.03); Imm Gran Pct Auto 0.1 % (0.0-0.4); Lymphocytes Absolute Auto 2.9 X10*3/uL (1.2-4.9); Mean Corpuscular HGB Conc 33.3 g/dl (31.0-36.0); Mean Corpuscular Hemoglobin 30.1 pg (27.0-33.0); Mean Corpuscular Volume 90.4 fL (80.0-98.0); NRBC Abs Auto 0.000 X10*3/uL (0.0-0.012); NRBC Pct Auto 0.0 /100WBC (0.0-0.2); Platelet Count 212 X10*3/uL (160-400); Red Blood Count 5.72 X10*6/uL (4.60-5.80); White Blood Count 7.3 X10*3/uL (4.8-10.8)
[2024-10-31 11:58] LABS: Alanine Aminotransferase 38 U/L (0-40); Albumin Level 4.5 g/dL (3.5-5.0); Alkaline Phosphatase 93 U/L (39-117); Anion Gap 13 (12-20); Aspartate Amino Transferase 31 U/L (5-37); Blood Urea Nitrogen 18 mg/dL (9-16); Calcium 9.3 mg/dL (8.4-10.2); Carbon Dioxide 26 mmol/L (22-29); Chloride 108 mmol/L (96-108); Estimated Glomerular Filt Rate 54; Potassium 4.7 mmol/L (3.3-5.1); Sodium 142 mmol/L (135-145); Total Protein 7.4 g/dL (6.5-8.0)
[2024-10-31 12:08] LABS: HBS Num1 184.79 mIU/mL (0-7.99); HBsAGNum1 0.34 S/CO (0.00-0.99); Hepatitis B Surface Antigen Negative (Negative); ~Hepatitis B Surface Antibody REACTIVE (Nonreactive)
[2024-10-31 12:09] LABS: ~Hepatitis A Antibody IgG 8.27 S/CO (0.00-0.99)
[2024-11-03 15:04] LABS: Hepatitis B Viral DNA Qn - cp NOT DETECTED Log IU/mL (NOT DETECTED); Hepatitis B Viral DNA Qn-IU/mL NOT DETECTED (NOT DETECTED)
[2024-11-03 17:39] LABS: HIV RNA PCR Qn Copies 293 copies/mL (NOT DETECTED); HIV RNA PCR Qn Log Copies 2.47 (NOT DETECTED)
== END 2024-10-31 08:08 | disposition home or self-care (01) ==
LOC: HO.HHCL 08:07
PROVIDERS: Internal Medicine; PCP Student in an Organized Health Care Education/Training Program; Visit Provider Student in an Organized Health Care Education/Training Program
DX: Z21 Asymptomatic human immunodeficiency virus [HIV] infection status (principal)
CPT/HCPCS: 36415; 80053; 85025; 86706; 86708; 87340; 87517; 87536

== ENCOUNTER 2024-12-29 08:16 | Outpatient (REF) | payer MEDICAID, SELFPAY ==
--- OUTSIDE RECORDS SUMMARY | 2024-12-29 09:11 | XMS_ITS | Clinical Summary ---
Author Organization 175 [facility] Address [address] [place] [address] Phone Care Team Providers Care Bucket Operator Name Role Phone Taylor Mitchell RN Primary [...] Do not crush, chew, or split. Active Social History Tobacco Use Types Packs/Day Years [...] 07/10/2024 11:20 AM EDT Plan of Treatment Health Maintenance Due Date Last Done Comments Cholesterol Screening (Lipid Panel) 02/10/2024 Colorectal Cancer Screening: Colonoscopy 02/10/2024 HIV Screening 02/10/2024 Hepatitis C Screening 02/10/2024 Social Influencers of Health Screening 02/10/2024 Depression Screening 04/16/2024 COVID-19 Vaccine (5 - Moderna risk season) [...] Completed 08/13/2023, 09/30/2015, 05/27/2009, Additional history exists Zoster Vaccines Completed 06/03/2024, 02/25/2024 Hepatitis B Vaccines Completed 07/03/2024, 02/25/20 Hepatitis A Vaccines Aged Out 09/01/2024, 02/25/2024, 05/27/2009, Additional history exists No longer eligible based on patient's age to complete this topic HIB Vaccines Aged Out No longer eligi [...] topic Insurance MEDICAID - [place] Care Teams Bucket Operator Relationship Specialty Start Date End Date Taylor Mitchell RN [address] [facility] [address] [place] [address] PCP - General 01/17/24
[2024-12-29 11:16] LABS: MANUAL DIFF FLAG NO
[2024-12-29 11:18] LABS: Hematocrit 51.9 % (42.0-52.0); Hemoglobin 17.4 g/dl (14.0-18.0); Imm Gran Abs Auto 0.01 X10*3/uL (0.00-0.03); Imm Gran Pct Auto 0.2 % (0.0-0.4); Lymphocytes Absolute Auto 2.7 X10*3/uL (1.2-4.9); Mean Corpuscular HGB Conc 33.5 g/dl (31.0-36.0); Mean Corpuscular Hemoglobin 30.3 pg (27.0-33.0); Mean Corpuscular Volume 90.3 fL (80.0-98.0); NRBC Abs Auto 0.000 X10*3/uL (0.0-0.012); NRBC Pct Auto 0.0 /100WBC (0.0-0.2); Platelet Count 208 X10*3/uL (160-400); Red Blood Count 5.75 X10*6/uL (4.60-5.80); White Blood Count 6.5 X10*3/uL (4.8-10.8)
[2024-12-29 11:42] LABS: Hemoglobin A1C 174.5395 umol/L; Total Hemoglobin (HGBA1C) 4507.3659 umol/L
[2024-12-29 11:58] LABS: Alanine Aminotransferase 39 U/L (0-40); Albumin Level 4.8 g/dL (3.5-5.0); Alkaline Phosphatase 96 U/L (39-117); Anion Gap 13 (12-20); Aspartate Amino Transferase 31 U/L (5-37); Blood Urea Nitrogen 16 mg/dL (9-16); Calcium 9.3 mg/dL (8.4-10.2); Carbon Dioxide 24 mmol/L (22-29); Chloride 109 mmol/L (96-108); Estimated Glomerular Filt Rate > 60; Potassium 3.8 mmol/L (3.3-5.1); Sodium 142 mmol/L (135-145); Total Protein 7.8 g/dL (6.5-8.0)
[2024-12-29 12:01] LABS: HBS Num1 119.74 mIU/mL (0-7.99); HBsAGNum1 0.39 S/CO (0.00-0.99); Hepatitis B Surface Antigen Negative (Negative); ~HepC Num1 0.10 S/CO (0.00-0.79); ~Hepatitis B Surface Antibody REACTIVE (Nonreactive); ~Hepatitis C Antibody Nonreactive (Nonreactive)
[2024-12-29 12:05] LABS: Cholesterol 184 mg/dL (<200); HDL Cholesterol 38 mg/dL (>40); Triglycerides 192 mg/dL (<150)
[2024-12-29 12:21] LABS: Reflex LDLD? No
[2024-12-30 21:08] LABS: HIV RNA PCR Qn Copies 240 copies/mL (NOT DETECTED); HIV RNA PCR Qn Log Copies 2.38 (NOT DETECTED)
[2025-01-01 04:39] LABS: TS Negative Control Passed; TS Panel A 0; TS Panel B 1; TS Positive Control Passed; TSpotTB Negative (Negative)
[2025-01-05 15:43] LABS: Absolute CD3 Count 1937 cells/uL (840-3060); Absolute CD8 Count 858 cells/uL (180-1170); Percent CD3 Cells 75 % (57-85); Percent CD8 Cells 33 % (12-42)
== END 2024-12-29 08:17 | disposition home or self-care (01) ==
LOC: HO.HHCL 08:16
PROVIDERS: PCP Student in an Organized Health Care Education/Training Program; Referring Provider Registered Nurse; Visit Provider Student in an Organized Health Care Education/Training Program
DX: Z21 Asymptomatic human immunodeficiency virus [HIV] infection status (principal); Z11.3 Encounter for screening for infections with a predominantly sexual mode of transmission; Z11.1 Encounter for screening for respiratory tuberculosis; Z11.59 Encounter for screening for other viral diseases
CPT/HCPCS: 36415; 80053; 80061; 83036; 85025; 86359; 86360; 86481; 86592; 86706; 86803; 87340; 87536

== ENCOUNTER 2025-01-06 09:08 | Outpatient (REF) | payer MEDICAID, SELFPAY ==
--- OUTSIDE RECORDS SUMMARY | 2025-01-06 10:34 | XMS_ITS | Clinical Summary ---
Author Organization 175 [facility] Address [address] [place] [address] Phone Care Team Providers Care Prepress Stripper Name Role Phone Taylor Mitchell RN Primary [...] NEEDED. (MAX OF 6 PUFFS PER DAY) 5 Active tolterodine LA (DETROL LA) 2 mg [...] Td or Tdap) 12/28/2031 12/27/2021, 11/16/2011, 11/12/2008 RSV Immunization Adult Patients (1 - 1-dose 75+ series) 2047 MMR Vaccines Aged Out 08/31/2022, 11/16/2011 No [...] topic Insurance MEDICA[place] - [place] Care Teams Prepress Stripper Relationship Specialty Start Date End Date Taylor Mitchell RN [address] [facility] 1 [place] [address] PCP - General 01/17/24
[2025-01-06 13:14] LABS: Anion Gap 13 (12-20); Blood Urea Nitrogen 21 mg/dL (9-16); Calcium 9.3 mg/dL (8.4-10.2); Carbon Dioxide 25 mmol/L (22-29); Chloride 109 mmol/L (96-108); Estimated Glomerular Filt Rate 56; Potassium 4.0 mmol/L (3.3-5.1); Sodium 143 mmol/L (135-145)
[2025-01-14 21:47] LABS: HIV 1 Integrase Proviral DNA DETECTED; HIV 1 PR RT Proviral DNA DETECTED
== END 2025-01-06 09:09 | disposition home or self-care (01) ==
LOC: HO.HHCL 09:08
PROVIDERS: PCP Registered Nurse; Visit Provider Student in an Organized Health Care Education/Training Program
DX: Z21 Asymptomatic human immunodeficiency virus [HIV] infection status (principal); I10 Essential (primary) hypertension
CPT/HCPCS: 36415; 80048; 87900; 87901; 87906

== ENCOUNTER 2025-01-12 09:42 | Outpatient (REF) | payer MEDICAID, SELFPAY ==
--- OUTSIDE RECORDS SUMMARY | 2025-01-12 10:34 | XMS_ITS | Clinical Summary ---
Author Organization 175 [facility] Address [address] [place] [address] Phone Care Team Providers Care Railroad Car Cleaner Name Role Phone Taylor Mitchell RN Primary [...] Health Maintenance Due Date Last Done Comments Colorectal Cancer Screening: Colonoscopy 1972 Cholesterol Screening (Lipid Panel) 02/10/2024 HIV Screening 02/10/2024 Hepatitis C Screening [...] Vaccines Completed 07/03/2024, 02/25/20 Hepatitis A Vaccines Completed 09/01/2024, 02/25/2024, 05/27/2009, Additional history exists HIB Vaccines Aged Out No longer eligi [...] topic Insurance [place] - [place] Care Teams Railroad Car Cleaner Relationship Specialty Start Date End Date Taylor Mitchell RN [address] [facility] 1 [place] [address] PCP - General 01/17/24
[2025-01-12 11:26] LABS: Appearance Urine Clear; Glucose Urine UA Negative (Negative); PH 5.5 (5.0-9.0); Specific Gravity - Urine >= 1.030 (1.005-1.025)
[2025-01-12 12:53] LABS: CT PCR Urine NOT DETECTED (Not Detect.); NG PCR Urine NOT DETECTED (Not Detect.)
[2025-01-22 18:43] LABS: HIV 1 Integrase Proviral DNA DETECTED; HIV 1 PR RT Proviral DNA DETECTED
== END 2025-01-12 09:43 | disposition home or self-care (01) ==
LOC: HO.HHCL 09:42
PROVIDERS: PCP Student in an Organized Health Care Education/Training Program; Visit Provider Student in an Organized Health Care Education/Training Program
DX: Z11.3 Encounter for screening for infections with a predominantly sexual mode of transmission (principal); Z11.8 Encounter for screening for other infectious and parasitic diseases; Z21 Asymptomatic human immunodeficiency virus [HIV] infection status
CPT/HCPCS: 36415; 81001; 87491; 87591; 87900; 87901; 87906